=== PATIENT | female | born 1960 | race Caucasian/White ===

== ENCOUNTER → 2016-05-15 | Outpatient (CLI) | payer OTHER | END | disposition home or self-care (01) | LOC: LABWHC1 13:13 | PROVIDERS: ATTEND Otolaryngology | DX: J30.9 Allergic rhinitis, unspecified (principal) | CPT/HCPCS: 36415 ==

== ENCOUNTER 2016-08-09 13:17 | Emergency (ER) | payer OTHER ==
[2016-08-09 13:24] VITALS: RESP 18
[2016-08-09] MEDS ORDERED: MAG HYDROX/AL HYDROX/SIMETH 30 ML, HYOSCYAMINE ELIXIR 10 ML, CIMETIDINE HCL 300 MG, LID... PO STA ×4 (13:45)
--- NOTE | 2016-08-09 13:47 | ED ---
General Adult HPI - General Chief complaint: Abdominal Pain Stated complaint: Chest Pain Time Seen by Provider: 08/09/16 13:20 Source: patient, RN notes reviewed Mode of arrival: ambulatory Limitations: no limitations - History of Present Illness Initial comments: This is a 56-year-old female comes in with a history of heartburn. Patient states she was just recently put on Prevacid which she started this morning. Patient states a few hours after that she started getting a heartburn-like feeling back in the same area she normally has it however it didn't subside and in fact has gotten worse so it made her nervous so she decided to come to the emergency department. Patient denies any chest pain or pressure. Patient denies any difficulty breathing shortest breath patient denies any diaphoresis. Patient denies any nausea. Patient states the pain starts in the epigastric area and lewis up a little from there. Patient states drinking water and/or eating something not been down for a short period time but then it comes back just as strong. Patient denies any recent fever chills or cough. Patient denies headache patient denies any lightheadedness dizziness or near syncopal episode. Patient denies diabetes or hypertension. Patient states she has had some history of high cholesterol but is on no medication at this time. Patient denies smoking - Related Data Home Medications Medication Instructions Recorded Confirmed Albuterol Sulfate [Proventil Hfa] 2 puff INHALATION RT-Q4H PRN 11/11/13 08/09/16 Aspirin 81 mg PO HS 11/11/13 08/09/16 Cetirizine HCl [Zyrtec] 10 mg PO HS 11/11/13 08/09/16 Estradiol Cream [Estrace Cream 1 gm TOPICAL MO 11/11/13 08/09/16 0.01%] Famotidine [Pepcid] 20 mg PO HS 11/11/13 08/09/16 Montelukast [Singulair] 10 mg PO HS 11/11/13 08/09/16 Olopatadine HCl [Patanol] 1 drop BOTH EYES BID 11/11/13 08/09/16 Acetaminophen [Tylenol] 650 mg PO Q4H PRN 10/10/15 08/09/16 Fluticasone/Salmeterol [Advair 1 puff INHALATION RT-BID 10/10/15 08/09/16 250-50 Diskus] Lansoprazole [Prevacid] 15 mg PO DAILY 08/09/16 08/09/16 Allergies Allergy/AdvReac Type Severity Reaction Status Date / Time amoxicillin trihydrate Allergy Unknown Verified 08/09/16 13:47 [From Augmentin] bacitracin Allergy Unknown Verified 08/09/16 13:47 [From Neosporin ([id number])] bacitracin zinc Allergy Unknown Verified 08/09/16 13:47 [From Neosporin ([id number])] banana Allergy Unknown Verified 08/09/16 13:47 cephalexin monohydrate Allergy Unknown Verified 08/09/16 13:47 [From Keflex] levofloxacin [From Levaquin] Allergy Unknown Verified 08/09/16 13:47 mometasone furoate Allergy Unknown Verified 08/09/16 13:47 [From Nasonex] neomycin sulfate Allergy Unknown Verified 08/09/16 13:47 [From Neosporin ([id number])] omalizumab [From Xolair] Allergy Swelling Verified 08/09/16 13:47 pineapple Allergy Unknown Verified 08/09/16 13:47 polymyxin B Allergy Unknown Verified 08/09/16 13:47 [From Neosporin ([id number])] potassium clavulanate Allergy Unknown Verified 08/09/16 13:47 [From Augmentin] sulfamethoxazole Allergy Unknown Verified 08/09/16 13:47 [From Bactrim] trimethoprim [From Bactrim] Allergy Unknown Verified 08/09/16 13:47 yeast, dried Allergy Unknown Verified 08/09/16 13:47 Iodinated Contrast Media - AdvReac Unknown Verified 08/09/16 13:47 Oral and [Iodinated Contrast Media - IV Dye] ketorolac [From Acular] AdvReac Unknown Verified 08/09/16 13:47 ketorolac tromethamine AdvReac Nausea & Verified 08/09/16 13:47 [From Toradol] Vomiting nabumetone [From Relafen] AdvReac Unknown Verified 08/09/16 13:47 omeprazole [From Prilosec] AdvReac Unknown Verified 08/09/16 13:47 Review of Systems ROS Statement: Those systems with pertinent positive or pertinent negative responses have been documented in the HPI. ROS Other: All systems not noted in ROS Statement are negative. Past Medical History Past Medical History: Asthma, GERD/Reflux, Hyperlipidemia History of Any Multi-Drug Resistant Organisms: None Reported Past Surgical History: Section, Hysterectomy Additional Past Surgical History / Comment(s): sinus Past Psychological History: No Psychological Hx Reported Smoking Status: Former smoker Past Alcohol Use History: None Reported Past Drug Use History: None Reported General Exam - General Exam Comments Initial Comments: GENERAL: Patient is well-developed and well-nourished. Patient is nontoxic and well- hydrated and is in mild distress. ENT: Neck is soft and supple. No significant lymphadenopathy is noted. Oropharynx is clear. Moist mucous membranes. Neck has full range of motion without eliciting any pain. EYES: The sclera were anicteric and conjunctiva were pink and moist. Extraocular movements were intact and pupils were equal round and reactive to light. Eyelids were unremarkable. PULMONARY: Unlabored respirations. Good breath sounds bilaterally. No audible rales rhonchi or wheezing was noted. CARDIOVASCULAR: There is a regular rate and rhythm without any murmurs gallops or rubs. ABDOMEN: Soft and nontender with normal bowel sounds. No palpable organomegaly was noted. There is no palpable pulsatile mass. SKIN: Skin is clear with no lesions or rashes and otherwise unremarkable. NEUROLOGIC: Patient is alert and oriented x3. Cranial nerves II through XII are grossly intact. Motor and sensory are also intact. Normal speech, volume and content. Symmetrical smile. MUSCULOSKELETAL: Normal extremities with adequate strength and full range of motion. No lower extremity swelling or edema. No calf tenderness. LYMPHATICS: No significant lymphadenopathy is noted PSYCHIATRIC: Normal psychiatric evaluation. Normal interpersonal interactions appears functionally intact in deals appropriately with others. Patient is mildly anxious Limitations: no limitations Course Vital Signs 08/09/16 13:21 Temperature 97.1 F L Pulse Rate 71 Respiratory 18 Rate Blood Pressure 140/75 O2 Sat by Pulse 100 Oximetry Medical Decision Making - Medical Decision Making EKG shows normal sinus rhythm at 75 bpm NM interval 166 dresses 86 QT interval 416 QTC is 464. Patient's EKG shows no ST segment elevation or depression or T- wave abnormality is noted. Patient had a GI cocktail and immediately had almost complete relief. Disposition Clinical Impression: GERD (gastroesophageal reflux disease) Disposition: HOME SELF-CARE Instructions: Gastroesophageal Reflux Disease (ED) Referrals: Domenica Kemp MD [Primary Care Provider] - 1-2 days Time of Disposition: 14:16
[2016-08-09 14:33] VITALS: BP 121/66; PULSE 70; TEMP 97.8
== END 2016-08-09 14:34 | disposition home or self-care (01) ==
LOC: EC 13:17
DX: K21.9 Gastro-esophageal reflux disease without esophagitis (principal); J45.909 Unspecified asthma, uncomplicated; Z87.891 Personal history of nicotine dependence; Z79.82 Long term (current) use of aspirin; Z79.51 Long term (current) use of inhaled steroids; Z79.3 Long term (current) use of hormonal contraceptives; Z79.899 Other long term (current) drug therapy; Z88.0 Allergy status to penicillin; Z88.1 Allergy status to other antibiotic agents; Z88.6 Allergy status to analgesic agent; Z88.8 Allergy status to other drugs, medicaments and biological substances; Z91.018 Allergy to other foods; Z91.041 Radiographic dye allergy status
CPT/HCPCS: 93005; 99284

== ENCOUNTER 2016-09-06 20:24 | Emergency (ER) | payer OTHER ==
[2016-09-06 20:31] VITALS: TEMP 98
--- NOTE | 2016-09-06 21:41 | ED ---
Skin/Abscess/FB HPI - General Chief complaint: Skin/Abscess/Foreign Body Stated complaint: Allergic Reaction Time Seen by Provider: 09/06/16 20:54 Source: patient Mode of arrival: ambulatory Limitations: no limitations - History of Present Illness Initial comments: Patient is a 56-year-old white female presenting to the emergency department with complaints of generalized rash that started at 2 PM today. Patient states she has had a rash on her posterior neck for approximately 2 weeks and was developing a secondary infection. Patient states that she went to a supervisor shop 4 days ago who prescribed doxycycline. Patient states that today she started breaking out in a rash around 2 PM that's itching. Patient denies chills, fevers, nausea, vomiting, shortness of breath, chest pain, or abdominal pain. Patient denies similar episode in the past. Patient states she took a Benadryl approximately 4 hours ago. MD complaint: rash Time: 14:00 Tetanus Up to Date: unsure Location: generalized Severity: mild Severity scale (1-10): 2 Quality: other (itching) Consistency: intermittent Improves with: medication Worsens with: none Context: new medication (Patient started doxycycline 4 days ago) Associated symptoms: itching Treatments Prior to Arrival: Benadryl - Related Data Home Medications Medication Instructions Recorded Confirmed Albuterol Sulfate [Proventil Hfa] 2 puff INHALATION RT-Q4H PRN 11/11/13 08/09/16 Aspirin 81 mg PO HS 11/11/13 08/09/16 Cetirizine HCl [Zyrtec] 10 mg PO HS 11/11/13 08/09/16 Estradiol Cream [Estrace Cream 1 gm TOPICAL MO 11/11/13 08/09/16 0.01%] Famotidine [Pepcid] 20 mg PO HS 11/11/13 08/09/16 Montelukast [Singulair] 10 mg PO HS 11/11/13 08/09/16 Olopatadine HCl [Patanol] 1 drop BOTH EYES BID 11/11/13 08/09/16 Acetaminophen [Tylenol] 650 mg PO Q4H PRN 10/10/15 08/09/16 Fluticasone/Salmeterol [Advair 1 puff INHALATION RT-BID 10/10/15 08/09/16 250-50 Diskus] Lansoprazole [Prevacid] 15 mg PO DAILY 08/09/16 08/09/16 Allergies Allergy/AdvReac Type Severity Reaction Status Date / Time amoxicillin trihydrate Allergy Unknown Verified 09/06/16 20:33 [From Augmentin] bacitracin Allergy Unknown Verified 09/06/16 20:33 [From Neosporin ([id number])] bacitracin zinc Allergy Unknown Verified 09/06/16 20:33 [From Neosporin ([id number])] banana Allergy Unknown Verified 09/06/16 20:33 cephalexin monohydrate Allergy Unknown Verified 09/06/16 20:33 [From Keflex] levofloxacin [From Levaquin] Allergy Unknown Verified 09/06/16 20:33 mometasone furoate Allergy Unknown Verified 09/06/16 20:33 [From Nasonex] neomycin sulfate Allergy Unknown Verified 09/06/16 20:33 [From Neosporin ([id number])] omalizumab [From Xolair] Allergy Swelling Verified 09/06/16 20:33 pineapple Allergy Unknown Verified 09/06/16 20:33 polymyxin B Allergy Unknown Verified 09/06/16 20:33 [From Neosporin ([id number])] potassium clavulanate Allergy Unknown Verified 09/06/16 20:33 [From Augmentin] sulfamethoxazole Allergy Unknown Verified 09/06/16 20:33 [From Bactrim] trimethoprim [From Bactrim] Allergy Unknown Verified 09/06/16 20:33 yeast, dried Allergy Unknown Verified 09/06/16 20:33 ciprofloxacin AdvReac Dizziness/n Verified 09/06/16 20:34 ausea Iodinated Contrast Media - AdvReac Unknown Verified 09/06/16 20:33 Oral and [Iodinated Contrast Media - IV Dye] ketorolac [From Acular] AdvReac Unknown Verified 09/06/16 20:33 ketorolac tromethamine AdvReac Nausea & Verified 09/06/16 20:33 [From Toradol] Vomiting nabumetone [From Relafen] AdvReac Unknown Verified 09/06/16 20:33 omeprazole [From Prilosec] AdvReac Unknown Verified 09/06/16 20:33 Review of Systems ROS Statement: Those systems with pertinent positive or pertinent negative responses have been documented in the HPI. ROS Other: All systems not noted in ROS Statement are negative. Past Medical History Past Medical History: Asthma, GERD/Reflux, Hyperlipidemia History of Any Multi-Drug Resistant Organisms: None Reported Past Surgical History: Section, Hysterectomy Additional Past Surgical History / Comment(s): sinus Past Psychological History: No Psychological Hx Reported Smoking Status: Former smoker Past Alcohol Use History: None Reported Past Drug Use History: None Reported General Exam - General Exam Comments Initial Comments: GENERAL: Pt awake and alert, well-appearing, well-nourished, and in no acute distress. HEAD: Atraumatic, normocephalic. EYES: Pupils equal, round, and reactive to light, sclera anicteric, conjunctiva are normal. ENT: Oropharynx clear without exudates. Moist mucous membranes. Tongue smooth, pink, no lesions, protrudes in midline. No oral lesions noted. NECK:Normal range of motion, supple without lymphadenopathy or JVD. LUNGS: Breath sounds clear to auscultation bilaterally. No wheezes, rales, or rhonchi. HEART: Heart S1, S2, no S3 or S4. Regular rate and rhythm. No murmurs, rubs or gallops. ABDOMEN: Soft, nontender, nondistended, normoactive bowel sounds. No guarding, no rebound. No masses or organomegaly appreciated. EXTREMITIES: 2+ peripheral pulses. No edema. No calf tenderness. NEUROLOGICAL: Pt oriented x 3. Cranial nerves II through XII grossly intact. Strength and sensation grossly intact. PSYCH: Normal mood, normal affect. SKIN: Warm, dry, intact. Generalized macular papular rash to entire body except face. Limitations: no limitations Course Vital Signs 09/06/16 09/06/16 20:28 21:53 Temperature 98.0 F Pulse Rate 95 85 Respiratory 18 16 Rate Blood Pressure 123/75 131/80 O2 Sat by Pulse 100 100 Oximetry Medical Decision Making - Medical Decision Making Generalized maculopapular rash suspect secondary to drug reaction. Patient instructed to discontinue doxycycline and continue Benadryl every 6 hours as needed. Patient instructed to follow-up with supervisor shop. Patient instructed to return to the emergency department if symptoms do not improve or get worse. Patient agrees with treatment plan. Discharge instructions and return parameters reviewed. Disposition Clinical Impression: Allergic reaction to drug Disposition: HOME SELF-CARE Condition: Good Instructions: Antibiotic Medication Allergy (ED) Additional Instructions: Stop doxycycline. Continue Benadryl 50 mg every 6 hours as needed. Follow-up with dermatology. If symptoms do not improve or get worse please return to the emergency department. Referrals: Domenica Kemp MD [Primary Care Provider] - 1-2 days Time of Disposition: 21:41
[2016-09-06 21:55] VITALS: BP 131/80; PULSE 85; RESP 16
== END 2016-09-06 21:55 | disposition home or self-care (01) ==
LOC: EC 20:24
DX: R21 Rash and other nonspecific skin eruption (principal); T36.4X5A Adverse effect of tetracyclines, initial encounter; J45.909 Unspecified asthma, uncomplicated; K21.9 Gastro-esophageal reflux disease without esophagitis; E78.5 Hyperlipidemia, unspecified; Z88.0 Allergy status to penicillin; Z88.1 Allergy status to other antibiotic agents; Z88.2 Allergy status to sulfonamides; Z88.5 Allergy status to narcotic agent; Z88.8 Allergy status to other drugs, medicaments and biological substances; Z91.018 Allergy to other foods; Z91.041 Radiographic dye allergy status; Z79.51 Long term (current) use of inhaled steroids; Z79.82 Long term (current) use of aspirin; Z79.899 Other long term (current) drug therapy; Z87.891 Personal history of nicotine dependence
CPT/HCPCS: 99283

== ENCOUNTER 2016-09-07 16:02 | Emergency (ER) | payer OTHER ==
[2016-09-07 16:25] VITALS: TEMP 97.2
[2016-09-07 16:51] VITALS: RESP 16
--- NOTE | 2016-09-07 17:32 | ED ---
General Adult HPI <Deangelo Palacios - Last Filed: 09/07/16 17:33> - General Source: patient, RN notes reviewed Mode of arrival: ambulatory Limitations: no limitations <Jaziel Weems - Last Filed: 09/07/16 17:47> - General Chief complaint: Allergic Reaction Stated complaint: Allergic Reaction Time Seen by Provider: 09/07/16 16:28 - History of Present Illness Initial comments: Patient's a 56-year-old female who presents emergency room today with chief complaint of a rash. Patient does admit that she was on doxycycline due to a infection to the back of her neck. She states she was on this for 4 days. States that yesterday she had increased itching and a rash that broke out across her body. She states that she tried some Benadryl. She was seen here in the emergency room and advised to continue with Benadryl. Patient does admit that she's been using this but feels that symptoms are increasing. Patient states she cannot take steroids as it causes GI upset. Patient also admits to a possible yeast infection. Patient denies any other complaints or symptoms at this time. Patient denies any recent fever, chills, shortness of breath, chest pain, back pain, abdominal pain, nausea or vomiting, numbness or tingling, dysuria or hematuria, constipation or diarrhea, headaches or visual changes, or any other complaints. (Jaziel Weems) - Related Data Home Medications Medication Instructions Recorded Confirmed Albuterol Sulfate [Proventil Hfa] 2 puff INHALATION RT-Q4H PRN 11/11/13 08/09/16 Aspirin 81 mg PO HS 11/11/13 08/09/16 Cetirizine HCl [Zyrtec] 10 mg PO HS 11/11/13 08/09/16 Estradiol Cream [Estrace Cream 1 gm TOPICAL MO 11/11/13 08/09/16 0.01%] Famotidine [Pepcid] 20 mg PO HS 11/11/13 08/09/16 Montelukast [Singulair] 10 mg PO HS 11/11/13 08/09/16 Olopatadine HCl [Patanol] 1 drop BOTH EYES BID 11/11/13 08/09/16 Acetaminophen [Tylenol] 650 mg PO Q4H PRN 10/10/15 08/09/16 Fluticasone/Salmeterol [Advair 1 puff INHALATION RT-BID 10/10/15 08/09/16 250-50 Diskus] Lansoprazole [Prevacid] 15 mg PO DAILY 08/09/16 08/09/16 Previous Rx's Medication Instructions Recorded Fluconazole [Diflucan] 150 mg PO ONCE #1 tab 09/07/16 hydrOXYzine PAMOATE [Vistaril] 100 mg PO Q6H #20 capsule 09/07/16 Allergies Allergy/AdvReac Type Severity Reaction Status Date / Time amoxicillin trihydrate Allergy Unknown Verified 09/07/16 16:20 [From Augmentin] bacitracin Allergy Unknown Verified 09/07/16 16:20 [From Neosporin ([id number])] bacitracin zinc Allergy Unknown Verified 09/07/16 16:20 [From Neosporin ([id number])] banana Allergy Unknown Verified 09/07/16 16:20 cephalexin monohydrate Allergy Unknown Verified 09/07/16 16:20 [From Keflex] levofloxacin [From Levaquin] Allergy Unknown Verified 09/07/16 16:20 mometasone furoate Allergy Unknown Verified 09/07/16 16:20 [From Nasonex] neomycin sulfate Allergy Unknown Verified 09/07/16 16:20 [From Neosporin ([id number])] omalizumab [From Xolair] Allergy Swelling Verified 09/07/16 16:20 pineapple Allergy Unknown Verified 09/07/16 16:20 polymyxin B Allergy Unknown Verified 09/07/16 16:20 [From Neosporin ([id number])] potassium clavulanate Allergy Unknown Verified 09/07/16 16:20 [From Augmentin] sulfamethoxazole Allergy Unknown Verified 09/07/16 16:20 [From Bactrim] trimethoprim [From Bactrim] Allergy Unknown Verified 09/07/16 16:20 yeast, dried Allergy Unknown Verified 09/07/16 16:20 ciprofloxacin AdvReac Dizziness/n Verified 09/07/16 16:20 ausea Iodinated Contrast Media - AdvReac Unknown Verified 09/07/16 16:20 Oral and [Iodinated Contrast Media - IV Dye] ketorolac [From Acular] AdvReac Unknown Verified 09/07/16 16:20 ketorolac tromethamine AdvReac Nausea & Verified 09/07/16 16:20 [From Toradol] Vomiting nabumetone [From Relafen] AdvReac Unknown Verified 09/07/16 16:20 omeprazole [From Prilosec] AdvReac Unknown Verified 09/07/16 16:20 Review of Systems ROS Other: All systems not noted in ROS Statement are negative. <Deangelo Palacios - Last Filed: 09/07/16 17:33> ROS Other: All systems not noted in ROS Statement are negative. <Jaziel Weems - Last Filed: 09/07/16 17:47> ROS Statement: Those systems with pertinent positive or pertinent negative responses have been documented in the HPI. Past Medical History Past Medical History: Asthma, GERD/Reflux, Hyperlipidemia History of Any Multi-Drug Resistant Organisms: None Reported Past Surgical History: Section, Hysterectomy Additional Past Surgical History / Comment(s): sinus Past Psychological History: No Psychological Hx Reported Smoking Status: Former smoker Past Alcohol Use History: None Reported Past Drug Use History: None Reported <Jaziel Weems - Last Filed: 09/07/16 17:47> General Exam External exam: Present: erythema. Absent: lesions Speculum exam: Present: erythema, vaginal discharge (white discharge noted ), cervical discharge. Absent: vaginal bleeding, foreign body, tissue, laceration By manual exam: Present: normal by manual exam. Absent: cervical motion tenderness, adnexal tenderness, adnexal mass, uterine enlargement, uterine tenderness Expanded Female exam: Present: vulvar erythema, vulvar tenderness. Absent: herpetic lesions <Deangelo Palacios - Last Filed: 09/07/16 17:33> Limitations: no limitations <Jaziel Weems - Last Filed: 09/07/16 17:47> - General Exam Comments Initial Comments: General: The patient is awake and alert, in no distress, and does not appear acutely ill. Eye: Pupils are equal, round and reactive to light, extra-ocular movements are intact. No nystagmus. There is normal conjunctiva bilaterally. No signs of icterus. Ears, nose, mouth and throat: There are moist mucous membranes and no oral lesions. Neck: The neck is supple, there is no tenderness or JVD. Cardiovascular: There is a regular rate and rhythm. No murmur, rub or gallop is appreciated. Respiratory: Lungs are clear to auscultation, respirations are non-labored, breath sounds are equal. No wheezes, stridor, rales, or rhonchi. Musculoskeletal: Normal ROM, no tenderness. Strength 5/5. Sensation intact. Pulses equal bilaterally 2+. Neurological: A&O x 3. CN II-XII intact, There are no obvious motor or sensory deficits. Coordination appears grossly intact. Speech is normal. Skin: She does have Type rash scattered throughout the upper and lower extremities along with the anterior and posterior trunk. Findings consistent with hives. Psychiatric: Cooperative, appropriate mood & affect, normal judgment. (Jaziel Weems) Medical Decision Making <Deangelo Palacios Last Filed: 09/07/16 17:33> <Jaziel Weems - Last Filed: 09/07/16 17:47> - Medical Decision Making Patient advised that we can try Vistaril instead of Benadryl and advised to continue and begin taking her Pepcid that she's taken in the past because it will help with some of his symptoms. Patient wanted a pelvic exam performed but wanted a female provider and this was performed by Deangelo Palacios [employer] who states the findings are consistent with a yeast infection. Patient was on Diflucan given one pill when she started doxycycline. Patient will be given another dose of Diflucan. Advised that she should follow-up with the clam dredger. He will be given a prescription for Vistaril. Advised to use Pepcid. Advised return for any other concerns. (Jaziel Weems) Disposition <Deangelo Palacios - Last Filed: 09/07/16 17:33> Time of Disposition: 17:45 <Jaziel Weems - Last Filed: 09/07/16 17:47> Clinical Impression: Allergic reaction, Yeast infection Disposition: HOME SELF-CARE Condition: Good Instructions: Urticaria (ED) Additional Instructions: Please use medication as discussed. Please follow-up with family doctor / clam dredger in the next 2 days of symptoms have not improved. Please return to emergency room if the symptoms increase or worsen or for any other concerns. Prescriptions: Fluconazole [Diflucan] 150 mg PO ONCE #1 tab hydrOXYzine PAMOATE [Vistaril] 100 mg PO Q6H #20 capsule Referrals: Domenica Kemp MD [Primary Care Provider] - 1-2 days
[2016-09-07 17:37] VITALS: BP 120/77; PULSE 67
== END 2016-09-07 17:55 | disposition home or self-care (01) ==
LOC: EC 16:02
DX: B37.9 Candidiasis, unspecified (principal); T36.4X5A Adverse effect of tetracyclines, initial encounter; R21 Rash and other nonspecific skin eruption; J45.909 Unspecified asthma, uncomplicated; K21.9 Gastro-esophageal reflux disease without esophagitis; E78.5 Hyperlipidemia, unspecified; Z87.891 Personal history of nicotine dependence; Z79.51 Long term (current) use of inhaled steroids; Z79.82 Long term (current) use of aspirin; Z79.899 Other long term (current) drug therapy; Z88.0 Allergy status to penicillin; Z88.1 Allergy status to other antibiotic agents; Z91.018 Allergy to other foods; Z88.8 Allergy status to other drugs, medicaments and biological substances; Z88.2 Allergy status to sulfonamides; Z91.041 Radiographic dye allergy status; Z88.6 Allergy status to analgesic agent
CPT/HCPCS: 99283

== ENCOUNTER → 2017-09-21 | Outpatient (CLI) | payer OTHER ==
--- NOTE | 2017-09-21 08:27 | MR ---
EXAMINATION TYPE: MR lumbar spine wo con DATE OF EXAM: 09/21/2017 COMPARISON: 09/15/2013 HISTORY: Sciatica pain- left side TECHNIQUE: Multiplanar, multisequence images of the lumbar spine were acquired. FINDINGS: The lumbar spine vertebral bodies maintain normal vertebral body heights and alignment. Bon e marrow signal is within normal limits. Multilevel disc desiccation is seen. Conus medullaris termin ates at the L1-L2 interspace. L1-L2: Normal disc appearance without desiccation. No herniation, protrusion or disc bulging. No ca nal stenosis is present. Foramina are patent bilaterally. L2-L3: Normal disc appearance without desiccation. No herniation, protrusion or disc bulging. No ca nal stenosis is present. Foramina are patent bilaterally. L3-L4: There is a broad-based disc bulge and minimal facet arthropathy without spinal canal stenosis or neural foraminal narrowing. L4-L5: There is a central disc protrusion and annular tear minimally effacing the ventral subarachnoi d space and place impression upon the ventral thecal sac. This is similar in comparison to the exam o f 09/15/2013 with the spinal canal measuring approximately 7 mm. There is mild spinal canal stenosis an d minimal bilateral neural foraminal narrowing. L5-S1: There is a small broad-based disc bulge without spinal canal stenosis or neural foraminal narr owing. IMPRESSION: Similar-appearing small central disc herniation at L4-L5 creating mild spinal canal stenosis and mini mal bilateral neural foraminal narrowing. No new focal disc herniation. Minimal multilevel degenerati ve disc disease without additional areas of neural foraminal narrowing.
== END ==
LOC: RADMRIMAIN 07:28
PROVIDERS: ATTEND Psychiatry & Neurology Neurology
DX: M51.26 Other intervertebral disc displacement, lumbar region (principal)
CPT/HCPCS: 72148

== ENCOUNTER → 2017-09-29 | Outpatient (CLI) | payer OTHER | END | disposition home or self-care (01) | LOC: LABWHC1 15:32 | PROVIDERS: ATTEND Otolaryngology | DX: J30.89 Other allergic rhinitis (principal) | CPT/HCPCS: 36415 ==

== ENCOUNTER → 2018-02-16 | Outpatient (CLI) | payer OTHER ==
--- NOTE | 2018-02-16 21:35 | CT ---
EXAMINATION TYPE: CT sinus wo con DATE OF EXAM: 02/16/2018 COMPARISON: Sinus CT September 30, 2013 HISTORY: Chronic sinusitis per order. Sinus issues per patient. CT DLP: 577 mGycm. Automated Exposure Control for Dose Reduction was Utilized. TECHNIQUE: CT scan of the sinuses is performed without contrast, axial images are obtained, coronal r eformatted images are also reviewed. FINDINGS: The paranasal sinuses including the frontal, ethmoid, sphenoid, and maxillary sinuses bila terally are well-aerated without suspicious opacification or air-fluid levels. Mild mucosal thickenin g superior right ethmoid sinuses is stable. The surgically treated ostiomeatal complex is patent gianfranco aterally on the coronal images. Mild left-sided antral mucosal thickening is stable Visualized portion of mastoid air cells show no abnormal opacification. The globes are intact bilate rally. IMPRESSION: Stable mild right-sided ethmoid chronic sinusitis. No acute sinusitis. No significant ch jordan from prior CT.
== END | disposition home or self-care (01) ==
LOC: RADCTMAIN 16:12
PROVIDERS: ATTEND Nurse Practitioner Family
DX: J32.2 Chronic ethmoidal sinusitis (principal)
CPT/HCPCS: 70486

== ENCOUNTER 2018-03-04 10:58 | Emergency (ER) | payer OTHER ==
[2018-03-04 11:17] VITALS: BP 117/77; PULSE 94; RESP 18; TEMP 98
--- NOTE | 2018-03-04 12:46 | XR ---
EXAMINATION TYPE: XR chest 2V DATE OF EXAM: 03/04/2018 COMPARISON: Chest x-ray from 3 days ago. HISTORY: Recent upper respiratory infection with chest pain protocol. TECHNIQUE: Frontal and lateral views of the chest are obtained. FINDINGS: There is new right basilar linear atelectasis. There is no new suspicious focal air space opacity, pleural effusion, or pneumothorax seen. The cardiac silhouette size is within normal limits . The osseous structures are intact. IMPRESSION: New lateral right basilar linear atelectasis. No suspicious new acute focal infiltrate.
--- NOTE | 2018-03-04 14:08 | ED ---
General Adult HPI - General Chief complaint: Skin/Abscess/Foreign Body Stated complaint: BUMPS ALL OVER Time Seen by Provider: 03/04/18 11:26 Source: patient, RN notes reviewed Mode of arrival: ambulatory Limitations: no limitations - History of Present Illness Initial comments: 58-year-old female presents to the emergency department for a chief complaint of rash 2 days. Patient states she has severe yeast ALLERGY and believes this is related. Patient states she has been eating a lot of superfast [place] believes it has yeast in it. Patient states she has had this rash once before and went away without any difficulties. Patient also presents for upper respiratory infection. Patient has been coughing for about 5 days. Cough is nonproductive. No fevers or chills. No smoking history. Patient does have a history of asthma. She denies any significant shortness of breath. Patient has no other complaints at this time including shortness of breath, chest pain, abdominal pain, nausea or vomiting, headache, or visual changes. - Related Data Home Medications Medication Instructions Recorded Confirmed Albuterol Sulfate [Proventil Hfa] 2 puff INHALATION RT-Q4H PRN 11/11/13 03/04/18 Aspirin 81 mg PO HS 11/11/13 03/04/18 Cetirizine HCl [Zyrtec] 10 mg PO HS 11/11/13 03/04/18 Estradiol Cream [Estrace Cream 1 gm TOPICAL MO 11/11/13 03/04/18 0.01%] Famotidine [Pepcid] 20 mg PO HS PRN 11/11/13 03/04/18 Montelukast [Singulair] 10 mg PO HS 11/11/13 03/04/18 Olopatadine HCl [Patanol] 1 drop BOTH EYES BID PRN 11/11/13 03/04/18 Fluticasone/Salmeterol [Advair 1 puff INHALATION RT-BID 10/10/15 03/04/18 250-50 Diskus] Dextran/Hypromellose/Glycerin 1 drop BOTH EYES DAILY PRN 02/08/17 03/04/18 [Genteal Tears 0.1%-0.2%-0.3%] Ibuprofen [Motrin] 200 - 400 mg PO Q6HR PRN 02/08/17 03/04/18 EPINEPHrine (Auto Inject) [Epipen] 0.3 mg IM ONCE PRN 03/01/18 03/04/18 Cholecalciferol [Vitamin D3] 1,000 unit PO DIRECTED 03/04/18 03/04/18 Fluconazole [Diflucan] 100 mg PO BID 03/04/18 03/04/18 Levalbuterol Nebulized [Xopenex 1.25 mg INHALATION RT-TID PRN 03/04/18 03/04/18 Nebulized] diphenhydrAMINE [Benadryl] 25 - 50 mg PO HS PRN 03/04/18 03/04/18 Previous Rx's Medication Instructions Recorded predniSONE 20 mg PO DAILY 5 Days tab 03/01/18 Allergies Allergy/AdvReac Type Severity Reaction Status Date / Time amoxicillin trihydrate Allergy Unknown Verified 03/04/18 13:37 [From Augmentin] bacitracin Allergy Unknown Verified 03/04/18 13:37 [From Neosporin ([id number])] bacitracin zinc Allergy Unknown Verified 03/04/18 13:37 [From Neosporin ([id number])] banana Allergy Unknown Verified 03/04/18 13:37 cephalexin monohydrate Allergy Unknown Verified 03/04/18 13:37 [From Keflex] cortisone Allergy Rash/Hives Verified 03/04/18 13:37 doxycycline Allergy Rash/Hives Verified 03/04/18 13:37 doxylamine Allergy Rash/Hives Verified 03/04/18 13:37 levofloxacin [From Levaquin] Allergy Unknown Verified 03/04/18 13:37 mometasone furoate Allergy Unknown Verified 03/04/18 13:37 [From Nasonex] neomycin sulfate Allergy Unknown Verified 03/04/18 13:37 [From Neosporin ([id number])] omalizumab [From Xolair] Allergy Swelling Verified 03/04/18 13:37 pineapple Allergy Unknown Verified 03/04/18 13:37 polymyxin B Allergy Unknown Verified 03/04/18 13:37 [From Neosporin ([id number])] potassium clavulanate Allergy Unknown Verified 03/04/18 13:37 [From Augmentin] sulfamethoxazole Allergy Unknown Verified 03/04/18 13:37 [From Bactrim] trimethoprim [From Bactrim] Allergy Unknown Verified 03/04/18 13:37 yeast, dried Allergy Unknown Verified 03/04/18 13:37 ciprofloxacin AdvReac Dizziness/n Verified 03/04/18 13:37 ausea Iodinated Contrast- Oral and AdvReac Unknown Verified 03/04/18 13:37 IV Dye [Iodinated Contrast Media - IV Dye] ketorolac [From Acular] AdvReac Unknown Verified 03/04/18 13:37 ketorolac tromethamine AdvReac Nausea & Verified 03/04/18 13:37 [From Toradol] Vomiting nabumetone [From Relafen] AdvReac Unknown Verified 03/04/18 13:37 omeprazole [From Prilosec] AdvReac Unknown Verified 03/04/18 13:37 Review of Systems ROS Statement: Those systems with pertinent positive or pertinent negative responses have been documented in the HPI. ROS Other: All systems not noted in ROS Statement are negative. Past Medical History Past Medical History: Asthma, GERD/Reflux, Hyperlipidemia Additional Past Medical History / Comment(s): Allergic to [employer]eva [employer] products History of Any Multi-Drug Resistant Organisms: None Reported Past Surgical History: Section, Hysterectomy Additional Past Surgical History / Comment(s): sinus Past Psychological History: No Psychological Hx Reported Smoking Status: Former smoker Past Alcohol Use History: None Reported Past Drug Use History: None Reported General Exam Limitations: no limitations General appearance: alert, in no apparent distress Head exam: Present: atraumatic, normocephalic, normal inspection Eye exam: Present: normal appearance, PERRL, EOMI. Absent: scleral icterus, conjunctival injection, periorbital swelling ENT exam: Present: normal exam, normal oropharynx (Uvula midline, non- erythematous, no tonsillar exudates noted bilaterally), mucous membranes moist, TM's normal bilaterally, normal external ear exam Neck exam: Present: normal inspection, full ROM. Absent: tenderness, meningismus, lymphadenopathy Respiratory exam: Present: normal lung sounds bilaterally (No wheezing or rhonchi noted, lungs sound clear to auscultation bilaterally). Absent: respiratory distress, wheezes, rales, rhonchi, stridor Cardiovascular Exam: Present: regular rate, normal rhythm, normal heart sounds. Absent: systolic murmur, diastolic murmur, rubs, gallop, clicks Neurological exam: Present: alert, oriented X3, CN II-XII intact Psychiatric exam: Present: normal affect, normal mood Skin exam: Present: rash (About five 1 cm x 1 cm macular erythematous lesions noted sporadically, one to right upper arm, one too right ankle, one under right breast. She also has smaller papular lesions noted of the lower back.) Course Vital Signs 03/04/18 11:15 Temperature 98 F Pulse Rate 94 Respiratory 18 Rate Blood Pressure 117/77 O2 Sat by Pulse 98 Oximetry Medical Decision Making - Medical Decision Making 58-year-old female presents for a chief complaint of rash 2 days. Patient has a severe yeast ALLERGY and believes this is related. Rash consists of about 3- 5 sporadically placed 1 cm x 1 cm macular erythematous lesions. There are also small edematous papular lesions noted on the lower back. Patient states they are pruritic when she touches them but otherwise are asymptomatic. She also has upper respiratory infection according to her. Patient has a history of asthma. Patient had a chest x-ray done here 4 days ago which was negative. Lungs are clear to auscultate bilaterally. Chest x-ray was repeated which did not show any new consolidation although there is right lower lobe atelectasis. Patient was given steroids at her previous visit which she filled at home but has not yet taken. She states she will take these when she gets home. She refuses any steroids here as she states it has to be a specific brand where she will have an ALLERGIC reaction. The brand she has at home is a brand she tolerates. Dr. Roman also examined patient's rash. 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 She will follow-up with primary care for cough. Patient will return here if she has any worsening symptoms. Disposition Clinical Impression: Rash, Upper respiratory infection Disposition: HOME SELF-CARE Condition: Good Instructions: Upper Respiratory Infection (ED), Acute Rash (ED) Additional Instructions: Take steroid they were previously given. Please follow up with primary care in 1-2 days. Follow up with dermatology tomorrow. Please return to the emergency department if you have any worsening symptoms. Is patient prescribed a controlled substance at d/c from ED?: No Referrals: Domenica Kemp MD [Primary Care Provider] - 1-2 days Marcus Goodwin MD [STAFF PHYSICIAN] - 1-2 days Time of Disposition: 14:06
== END 2018-03-04 14:26 | disposition home or self-care (01) ==
LOC: EC 10:58
DX: J06.9 Acute upper respiratory infection, unspecified (principal); R21 Rash and other nonspecific skin eruption; J98.11 Atelectasis; J45.909 Unspecified asthma, uncomplicated; K21.9 Gastro-esophageal reflux disease without esophagitis; E78.5 Hyperlipidemia, unspecified; Z87.891 Personal history of nicotine dependence; Z90.710 Acquired absence of both cervix and uterus; Z79.51 Long term (current) use of inhaled steroids; Z79.82 Long term (current) use of aspirin; Z79.899 Other long term (current) drug therapy; Z88.0 Allergy status to penicillin; Z88.1 Allergy status to other antibiotic agents; Z88.2 Allergy status to sulfonamides; Z88.6 Allergy status to analgesic agent; Z88.8 Allergy status to other drugs, medicaments and biological substances; Z91.018 Allergy to other foods; Z91.041 Radiographic dye allergy status; Z91.048 Other nonmedicinal substance allergy status
CPT/HCPCS: 71046; 99283

== ENCOUNTER → 2018-03-23 | Outpatient (CLI) | payer OTHER ==
--- NOTE | 2018-03-26 07:34 | MM ---
Reason for exam: screening (asymptomatic). Last mammogram was performed 1 year and 3 months ago. Physical Findings: A clinical breast exam by your physician is recommended on an annual basis and results should be correlated with mammographic findings. MG Screening Mammo w CAD Bilateral CC and MLO view(s) were taken. Prior study comparison: January 01, 2017, bilateral MG screening mammo w CAD. January 18, 2015, bilateral MG screening mammo w CAD. There are scattered fibroglandular densities. No significant changes when compared with prior studies. ASSESSMENT: Benign, BI-RAD 2 RECOMMENDATION: Routine screening mammogram of both breasts in 1 year.
== END | disposition home or self-care (01) ==
LOC: RADMAMWWP 16:33
PROVIDERS: ATTEND Internal Medicine
DX: Z12.31 Encounter for screening mammogram for malignant neoplasm of breast (principal)
CPT/HCPCS: 77067

== ENCOUNTER → 2018-04-24 | Outpatient (CLI) | payer OTHER ==
--- NOTE | 2018-04-24 18:09 | MR ---
Thoracic MRI HISTORY: Mid back pain Multiplanar multisequence imaging obtained through the thoracic spine. No comparisons Thoracic vertebral bodies show preserved height, alignment, and bone marrow signal. Disc spaces are m aintained. There is no significant spinal stenosis, foraminal encroachment, or sizable disc herniatio n. Thoracic cord signal is normal. There are some facet arthropathy changes at the lower thoracic spi ne. Possible small cortical cyst upper pole right kidney measures only 6 mm. Small multilevel disc bu lges show only slight anterior mass effect on the thecal sac to include T9-10 to the right of midline , at C4-5 centrally at C3-4 centrally and T2-3, T1-T2. Some loss of disc height signal present at T9- 10. IMPRESSION: Mild degenerative disc disease.
== END | disposition home or self-care (01) ==
LOC: RADMRIMAIN 14:09
PROVIDERS: ATTEND Psychiatry & Neurology Neurology
DX: M51.34 Other intervertebral disc degeneration, thoracic region (principal)
CPT/HCPCS: 72146

== ENCOUNTER → 2018-05-20 | Outpatient (CLI) | payer OTHER ==
--- NOTE | 2018-05-21 07:12 | US ---
EXAMINATION TYPE: US kidneys/renal and bladder DATE OF EXAM: 05/20/2018 COMPARISON: MRI thoracic spine dated 04/24/2018 CLINICAL HISTORY: N28.0 Renal Cyst Rt Side. Renal cyst per MRI EXAM MEASUREMENTS: Right Kidney: 9.2 x 3.8 x 3.7 cm Left Kidney: 9.0 x 3.8 x 3.7 cm Right Kidney: Cystic area seen on MRI not seen on todays ultrasound exam. No hydronephrosis or nephr olithiasis. Left Kidney: No hydronephrosis or masses seen Bladder: wnl Bilateral Jets seen: Yes There is no evidence for hydronephrosis at this point in time. No nephrolithiasis is seen. No ksenia s are identified. The urinary bladder is anechoic. Bilateral ureteral jets are seen. IMPRESSION: The questionable cyst seen within the right upper pole of the kidney is not demonstrated on ultrasoun d and may have been artifactual. No suspicious solid or cystic renal mass is seen of either kidney.
== END | disposition home or self-care (01) ==
LOC: RADUSWWP 15:44
PROVIDERS: ATTEND Internal Medicine
DX: N28.1 Cyst of kidney, acquired (principal)
CPT/HCPCS: 76770

== ENCOUNTER → 2018-06-08 | Outpatient (CLI) | payer OTHER ==
--- NOTE | 2018-06-08 11:31 | XR ---
EXAMINATION TYPE: XR soft tissue neck DATE OF EXAM: 06/08/2018 COMPARISON: NONE HISTORY: 58-year-old female with neck pain TECHNIQUE: 2 views FINDINGS: Normal shouldering without abnormal narrowing of the subglottic airway. Epiglottis and prevertebral s oft tissues appear satisfactory. No retained radiopaque foreign body. No effacement of the nasopharyn geal or oropharyngeal airway. IMPRESSION: Unremarkable radiographic soft tissues of the neck
== END | disposition home or self-care (01) ==
LOC: RADXRYALE 09:38
PROVIDERS: ATTEND Internal Medicine
DX: M54.2 Cervicalgia (principal)
CPT/HCPCS: 70360

== ENCOUNTER → 2018-12-31 | Outpatient (CLI) | payer OTHER ==
--- NOTE | 2018-12-31 13:09 | FL ---
EXAMINATION TYPE: FL barium swallow DATE OF EXAM: 12/31/2018 COMPARISON: None HISTORY: Gastroesophageal reflux TECHNIQUE: A double air contrast UGI study is performed. FINDINGS: Fluoroscopy time: 54 seconds Images: 41 The esophagus dilates to normal caliber has normal contour to the gastroesophageal junction. Gastroes ophageal junction opens to normal caliber. There are a few tertiary contractions present during the e xamination compatible with presbyesophagus. The graft note is made of gastroesophageal reflux during this examination. IMPRESSIONS: 1. Gastroesophageal reflux to the level of the aortic arch during the exam. 2. Presbyesophagus.
== END | disposition home or self-care (01) ==
LOC: RADUSWWP 10:16
PROVIDERS: ATTEND Surgery Plastic and Reconstructive Surgery
DX: K21.9 Gastro-esophageal reflux disease without esophagitis (principal); K22.8 Other specified diseases of esophagus; Z88.1 Allergy status to other antibiotic agents; Z88.3 Allergy status to other anti-infective agents; Z88.6 Allergy status to analgesic agent
CPT/HCPCS: 74220

== ENCOUNTER 2019-01-07 10:39 | Day surgery (SDC) | payer OTHER ==
[2019-01-05 13:29] VITALS: BMI 25.0
[2019-01-07 09:29] VITALS: RESP 16; TEMP 97
--- NOTE | 2019-01-07 09:31 | P.GSHP ---
History of Present Illness H&P Date: 01/07/19 CHIEF COMPLAINT: GERD HISTORY OF PRESENT ILLNESS: The patient is a 58-year-old male who presents reports gastroesophageal reflux disease. Upper endoscopy was offered for further evaluation and management. PAST MEDICAL HISTORY: Please see list. PAST SURGICAL HISTORY: Please see list. MEDICATIONS: Please see list. ALLERGIES: Please see list. SOCIAL HISTORY: No illicit drug use FAMILY HISTORY: No reports of Crohn disease or ulcerative colitis. REVIEW OF ORGAN SYSTEMS: CONSTITUTIONAL: No reports of fevers or chills. GI: Denies any blood in stools or constipation. PHYSICAL EXAM: VITAL SIGNS: Stable GENERAL: Well-developed and pleasant in no acute distress. HEENT: No scleral icterus. Extraocular movements grossly intact. Moist buccal mucosa. NECK: Supple without lymphadenopathy. CHEST: Unlabored respirations. Equal bilateral excursions. CARDIOVASCULAR: Regular rate and rhythm. Distal 2+ pulses. ABDOMEN: Soft, nondistended. MUSCULOSKELETAL: No clubbing, cyanosis, or edema. ASSESSMENT: 1. Gastroesophageal reflux disease PLAN: 1. Recommend proceeding with an upper endoscopy Past Medical History Past Medical History: Asthma, GERD/Reflux, Hyperlipidemia Additional Past Medical History / Comment(s): Allergic to Teva Brand products. 3 leaky heart valves History of Any Multi-Drug Resistant Organisms: None Reported Past Surgical History: Section, Hysterectomy Additional Past Surgical History / Comment(s): sinus Past Anesthesia/Blood Transfusion Reactions: No Reported Reaction Smoking Status: Former smoker - Past Family History Mother Family Medical History: No Reported History Medications and Allergies Home Medications Medication Instructions Recorded Confirmed Type Albuterol Sulfate [Proventil Hfa] 2 puff INHALATION RT-Q4H PRN 11/11/13 01/05/19 History Aspirin 81 mg PO HS 11/11/13 01/05/19 History Estradiol Cream [Estrace Cream 1 gm TOPICAL Q7D 11/11/13 01/05/19 History 0.01%] Montelukast [Singulair] 10 mg PO HS 11/11/13 01/05/19 History Olopatadine HCl [Patanol] 1 drop BOTH EYES BID PRN 11/11/13 01/05/19 History Fluticasone/Salmeterol [Advair 1 puff INHALATION RT-BID 10/10/15 01/05/19 History 250-50 Diskus] Ibuprofen [Motrin] 200 - 400 mg PO Q6HR PRN 02/08/17 01/05/19 History EPINEPHrine (Auto Inject) [Epipen] 0.3 mg IM ONCE PRN 03/01/18 01/05/19 History Cholecalciferol [Vitamin D3] 5,000 unit PO Q7D 03/04/18 01/05/19 History Fluconazole [Diflucan] 100 mg PO BID PRN 03/04/18 01/05/19 History Levalbuterol Nebulized [Xopenex 1.25 mg INHALATION RT-TID PRN 03/04/18 01/05/19 History Nebulized] diphenhydrAMINE [Benadryl] 25 - 50 mg PO HS PRN 03/04/18 01/05/19 History Acetaminophen Tab [Tylenol Tab] 500 mg PO DAILY PRN 01/05/19 01/05/19 History Butalb/Asprin/Caff 50-325-40Mg 1 - 2 cap PO DAILY PRN 01/05/19 01/05/19 History [Fiorinal 50-325-40 MG] Cetirizine HCl [Zyrtec Oral Soln] 5 mg PO DAILY 01/05/19 01/05/19 History Cyclobenzaprine [Flexeril] 2.5 mg PO DAILY PRN 01/05/19 01/05/19 History Dextran/Hypromellose/Glycerin 1 drop BOTH EYES DAILY PRN 01/05/19 01/05/19 History [Genteal Tears 0.1%-0.2%-0.3%] Gentamicin 0.1% Cream 1 applic TOPICAL DAILY PRN 01/05/19 01/05/19 History Pantoprazole Sodium [Protonix] 20 mg PO DAILY 01/05/19 01/05/19 History Pseudoephedrine HCl [Sudafed] 30 mg PO DAILY PRN 01/05/19 01/05/19 History predniSONE 20 mg PO DAILY PRN 01/05/19 01/05/19 History Allergies Allergy/AdvReac Type Severity Reaction Status Date / Time amoxicillin trihydrate Allergy Unknown Verified 01/05/19 13:14 [From Augmentin] bacitracin Allergy Unknown Verified 01/05/19 13:14 [From Neosporin ([id number])] bacitracin zinc Allergy Unknown Verified 01/05/19 13:14 [From Neosporin ([id number])] cephalexin monohydrate Allergy Unknown Verified 01/05/19 13:14 [From Keflex] cortisone Allergy Rash/Hives Verified 01/05/19 13:14 doxycycline Allergy Rash/Hives Verified 01/05/19 13:14 doxylamine Allergy Rash/Hives Verified 01/05/19 13:14 levofloxacin [From Levaquin] Allergy Unknown Verified 01/05/19 13:14 mometasone furoate Allergy Unknown Verified 01/05/19 13:14 [From Nasonex] neomycin sulfate Allergy Unknown Verified 01/05/19 13:14 [From Neosporin ([id number])] omalizumab [From Xolair] Allergy Swelling Verified 01/05/19 13:14 polymyxin B Allergy Unknown Verified 01/05/19 13:14 [From Neosporin ([id number])] potassium clavulanate Allergy Unknown Verified 01/05/19 13:14 [From Augmentin] sulfamethoxazole Allergy Unknown Verified 01/05/19 13:14 [From Bactrim] tobramycin Allergy Swelling Verified 01/05/19 13:14 trimethoprim [From Bactrim] Allergy Unknown Verified 01/05/19 13:14 banana AdvReac food Verified 01/05/19 13:14 sensitivity ciprofloxacin AdvReac Dizziness/n Verified 01/05/19 13:14 ausea Iodinated Contrast Media AdvReac Unknown Verified 01/05/19 13:14 [Iodinated Contrast Media - IV Dye] ketorolac [From Acular] AdvReac Unknown Verified 01/05/19 13:14 ketorolac tromethamine AdvReac Nausea & Verified 01/05/19 13:14 [From Toradol] Vomiting nabumetone [From Relafen] AdvReac Unknown Verified 01/05/19 13:14 omeprazole [From Prilosec] AdvReac Unknown Verified 01/05/19 13:14 pineapple AdvReac food Verified 01/05/19 13:14 sensitivity yeast, dried AdvReac food Verified 01/05/19 13:14 sensitivity teva Allergy Unknown Uncoded 01/05/19 13:14
[~2019-01-07 10:39] MED LIST: LACTATED RINGERS 1,000 ML IV SCH; LIDOCAINE 1% 20 ML VIAL (10MG/ML) FOR IV START INTRADERMA ONE
[2019-01-07] MEDS ORDERED: PROPOFOL 10 MG/ML 20 ML VIAL IV ONE (11:10)
[2019-01-07] MEDS ORDERED: LIDOCAINE 1% INJ 10MG/ML (20 ML MDV) ONE (11:10)
--- NOTE | 2019-01-07 11:31 | P.PCN ---
Date of Procedure: 01/07/19 Description of Procedure: PREOPERATIVE DIAGNOSIS: Gastroesophageal reflux disease. Epigastric abdominal pain POSTOPERATIVE DIAGNOSIS: Gastroesophageal reflux disease. Epigastric abdominal pain OPERATION: Esophagogastroduodenoscopy with biopsies along antrum. SURGEON: Leyla Nguyen MD ANESTHESIA: MAC. INDICATIONS: The patient is a 58-year-old female who presents with a history of reflux disease. Benefits and risks of the procedure were described. Informed consent was obtained. DESCRIPTION: The patient was brought into the endoscopy suite and laid in the left lateral decubitus position. An Olympus gastroscope was passed along the posterior oropharynx down to the distal esophagus where the squamocolumnar junction was encountered at 35 cm from the incisors. The stomach was entered and no bile reflux was found. Additional findings are listed below. Biopsies with cold forceps were obtained of the antrum. The first through third portion of the duodenum was examined and unremarkable. Retroflexion of the scope confirmed Hill grade 2 lower esophageal valve. The squamocolumnar junction demonstrated LA grade A erosive esophagitis. The stomach was desufflated. The patient tolerated the procedure well. FINDINGS: Squamocolumnar junction 35 cm from the incisors. Diaphragmatic hiatus at 36 cm. Hiatal hernia, 1 cm Hill grade 2 lower esophageal valve. LA grade A erosive esophagitis. No active duodenitis. Chronic gastritis mild RECOMMENDATIONS: Upper endoscopy as needed. Plan - Discharge Summary Discharge Rx Participant: No New Discharge Prescriptions: No Action Olopatadine HCl [Patanol] 1 drop BOTH EYES BID PRN PRN Reason: Eye Irritation Montelukast [Singulair] 10 mg PO HS Estradiol Cream [Estrace Cream 0.01%] 1 gm TOPICAL Q7D Aspirin 81 mg PO HS Albuterol Sulfate [Proventil Hfa] 2 puff INHALATION RT-Q4H PRN PRN Reason: Shortness Of Breath Fluticasone/Salmeterol [Advair 250-50 Diskus] 1 puff INHALATION RT-BID Ibuprofen [Motrin] 200 - 400 mg PO Q6HR PRN PRN Reason: Pain Or Fever > 100.5 EPINEPHrine (Auto Inject) [Epipen] 0.3 mg IM ONCE PRN PRN Reason: Anaphylaxis Levalbuterol Nebulized [Xopenex Nebulized] 1.25 mg INHALATION RT-TID PRN PRN Reason: Shortness Of Breath Fluconazole [Diflucan] 100 mg PO BID PRN PRN Reason: yeast infection diphenhydrAMINE [Benadryl] 25 - 50 mg PO HS PRN PRN Reason: Allergy Symptoms Cholecalciferol [Vitamin D3] 5,000 unit PO Q7D Gentamicin 0.1% Cream 1 applic TOPICAL DAILY PRN PRN Reason: Skin Irritation Cyclobenzaprine [Flexeril] 2.5 mg PO DAILY PRN PRN Reason: Pain Butalb/Asprin/Caff 50-325-40Mg [Fiorinal 50-325-40 MG] 1 - 2 cap PO DAILY PRN PRN Reason: migraines Pseudoephedrine HCl [Sudafed] 30 mg PO DAILY PRN PRN Reason: allergies Acetaminophen Tab [Tylenol Tab] 500 mg PO DAILY PRN PRN Reason: Pain Dextran/Hypromellose/Glycerin [Genteal Tears 0.1%-0.2%-0.3%] 1 drop BOTH EYES DAILY PRN PRN Reason: Eye Irritation Pantoprazole Sodium [Protonix] 20 mg PO DAILY Cetirizine HCl [Zyrtec Oral Soln] 5 mg PO DAILY predniSONE 20 mg PO DAILY PRN PRN Reason: allergies Discharge Medication List Albuterol Sulfate [Proventil Hfa] 2 puff INHALATION RT-Q4H PRN 11/11/13 [History] Aspirin 81 mg PO HS 11/11/13 [History] Estradiol Cream [Estrace Cream 0.01%] 1 gm TOPICAL Q7D 11/11/13 [History] Montelukast [Singulair] 10 mg PO HS 11/11/13 [History] Olopatadine HCl [Patanol] 1 drop BOTH EYES BID PRN 11/11/13 [History] Fluticasone/Salmeterol [Advair 250-50 Diskus] 1 puff INHALATION RT-BID 10/10/15 [History] Ibuprofen [Motrin] 200 - 400 mg PO Q6HR PRN 02/08/17 [History] EPINEPHrine (Auto Inject) [Epipen] 0.3 mg IM ONCE PRN 03/01/18 [History] Cholecalciferol [Vitamin D3] 5,000 unit PO Q7D 03/04/18 [History] Fluconazole [Diflucan] 100 mg PO BID PRN 03/04/18 [History] Levalbuterol Nebulized [Xopenex Nebulized] 1.25 mg INHALATION RT-TID PRN 03/04/18 [History] diphenhydrAMINE [Benadryl] 25 - 50 mg PO HS PRN 03/04/18 [History] Acetaminophen Tab [Tylenol Tab] 500 mg PO DAILY PRN 01/05/19 [History] Butalb/Asprin/Caff 50-325-40Mg [Fiorinal 50-325-40 MG] 1 - 2 cap PO DAILY PRN 01/05/19 [History] Cetirizine HCl [Zyrtec Oral Soln] 5 mg PO DAILY 01/05/19 [History] Cyclobenzaprine [Flexeril] 2.5 mg PO DAILY PRN 01/05/19 [History] Dextran/Hypromellose/Glycerin [Genteal Tears 0.1%-0.2%-0.3%] 1 drop BOTH EYES DAILY PRN 01/05/19 [History] Gentamicin 0.1% Cream 1 applic TOPICAL DAILY PRN 01/05/19 [History] Pantoprazole Sodium [Protonix] 20 mg PO DAILY 01/05/19 [History] Pseudoephedrine HCl [Sudafed] 30 mg PO DAILY PRN 01/05/19 [History] predniSONE 20 mg PO DAILY PRN 01/05/19 [History] Follow up Appointment(s)/Referral(s): Leyla Nguyen MD [STAFF PHYSICIAN] - 01/18/19 Patient Instructions/Handouts: *Surgery [facility] - (Anesthesia) Endoscopy Discharge Instructions, Gastroesophageal Reflux Disease (DC) Discharge Disposition: HOME SELF-CARE
[2019-01-07 11:53] VITALS: BP 129/79; PULSE 67
== END 2019-01-07 12:19 | disposition home or self-care (01) ==
LOC: ORWHC2ENDO 10:39
PROVIDERS: ATTEND Surgery Plastic and Reconstructive Surgery
DX: K21.0 Gastro-esophageal reflux disease with esophagitis (principal); K29.50 Unspecified chronic gastritis without bleeding; K44.9 Diaphragmatic hernia without obstruction or gangrene; K22.10 Ulcer of esophagus without bleeding; J45.909 Unspecified asthma, uncomplicated; E78.5 Hyperlipidemia, unspecified; I08.9 Rheumatic multiple valve disease, unspecified; Z90.710 Acquired absence of both cervix and uterus; Z87.891 Personal history of nicotine dependence; Z79.899 Other long term (current) drug therapy; Z79.82 Long term (current) use of aspirin; Z79.818 Long term (current) use of other agents affecting estrogen receptors and estrogen levels; Z79.51 Long term (current) use of inhaled steroids; Z79.1 Long term (current) use of non-steroidal anti-inflammatories (NSAID); Z88.6 Allergy status to analgesic agent; Z88.0 Allergy status to penicillin; Z88.1 Allergy status to other antibiotic agents; Z88.2 Allergy status to sulfonamides; Z88.8 Allergy status to other drugs, medicaments and biological substances; Z91.018 Allergy to other foods; Z91.041 Radiographic dye allergy status; Z91.048 Other nonmedicinal substance allergy status
CPT/HCPCS: 88305; 43239; J2001; J2704

== ENCOUNTER → 2019-05-18 | Outpatient (CLI) | payer OTHER | END | disposition home or self-care (01) | LOC: LABWHC1 15:50 | PROVIDERS: ATTEND Otolaryngology | DX: Z01.82 Encounter for allergy testing (principal) | CPT/HCPCS: 36415 ==

== ENCOUNTER 2019-11-07 19:54 | Observation (INO) | payer OTHER ==
--- NOTE | 2019-11-07 20:39 | ED ---
General Adult HPI - General Chief complaint: Neuro Symptoms/Deficit Stated complaint: Facial Numbness Time Seen by Provider: 11/07/19 20:10 Source: patient Mode of arrival: ambulatory Limitations: no limitations - History of Present Illness Initial comments: Dictation was produced using [employer] dictation software. please excuse any grammatical, word or spelling errors. This patient was cared for during a federal and state declared state of emerg ency secondary to Covid 19 Chief Complaint: 59-year-old female past medical history of asthma, dyslipidemia presents with right facial paresthesias History of Present Illness: 89-year-old female she has been having on and off paresthesias to the right face ongoing for proximally 7 days. She reports that she feels paresthesias to the right forehead and right lower face. States that sometimes it'll affect her lips and sometimes not however does absolutely affect the forehead area. Patient initially saw her primary care doctor where she was told she might have possible Davis's palsy. She was told to take Flexeril. She was then referred to ENT and neurology. When she was evaluated by neurology she was told to go to the emergency department if she had a recurrence of symptoms. Patient states that she actively has symptoms. She describes her symptoms as tingly sensation. She denies any facial weakness. She denies any abnormal sensation to touch. She denies any history of stroke. She has history of asthma and hyperlipidemia. The ROS documented in this emergency department record has been reviewed and confirmed by me. Those systems with pertinent positive or negative responses have been documented in the HPI. All other systems are other negative and/or noncontributory. PHYSICAL EXAM: General Impression: Alert and oriented x3, not in acute distress HEENT: Normocephalic atraumatic, extra-ocular movements intact, pupils equal and reactive to light bilaterally, mucous membranes moist, right tympanic membrane is clear Cardiovascular: Heart regular rate and rhythm Chest: Able to complete full sentences, no retractions, no tachypnea Abdomen: abdomen soft, non-tender, non-distended, no organomegaly Musculoskeletal: Pulses present and equal in all extremities, no peripheral edema Motor: no focal deficits noted Neurological: CN II-XII grossly intact, no focal motor or sensory deficits noted, no sensory deficit to light touch of the face arms or legs, no facial weakness. No periorbital weakness. Skin: Intact with no visualized rashes Psych: Normal affect and mood ED course: 59-year-old male presents with paresthesias to the upper and lower face and the right side. All signs upon arrival are within acceptable limits. NIH is 0. Laboratory evaluation obtained. CBC, metabolic panel is unremarkable. Serum alcohol is negative. CT scans of brain shows no acute processes. Case is discussed with Dr. Zeng cottonseed meat presser for neurology. Patient does not have any physical exam finding or measurable deficit, however she does complain of some asymmetrical paresthesias. Patient be admitted for CVA rule out. Patient given dose of aspirin. Discussed patient case with Dr. Arora who is willing to accept patients care on behalf of the [facility]. - Related Data Home Medications Medication Instructions Recorded Confirmed Albuterol Sulfate [Proventil Hfa] 2 puff INHALATION RT-Q4H PRN 11/11/13 01/07/19 Aspirin 81 mg PO HS 11/11/13 01/05/19 Estradiol Cream [Estrace Cream 1 gm TOPICAL Q7D 11/11/13 01/07/19 0.01%] Montelukast [Singulair] 10 mg PO HS 11/11/13 01/07/19 Olopatadine HCl [Patanol] 1 drop BOTH EYES BID PRN 11/11/13 01/07/19 Fluticasone/Salmeterol [Advair 1 puff INHALATION RT-BID 10/10/15 01/07/19 250-50 Diskus] Ibuprofen [Motrin] 200 - 400 mg PO Q6HR PRN 02/08/17 01/05/19 EPINEPHrine (Auto Inject) [Epipen] 0.3 mg IM ONCE PRN 03/01/18 01/05/19 Cholecalciferol [Vitamin D3] 5,000 unit PO Q7D 03/04/18 01/07/19 Fluconazole [Diflucan] 100 mg PO BID PRN 03/04/18 01/07/19 Levalbuterol Nebulized [Xopenex 1.25 mg INHALATION RT-TID PRN 03/04/18 01/07/19 Nebulized] diphenhydrAMINE [Benadryl] 25 - 50 mg PO HS PRN 03/04/18 01/07/19 Acetaminophen Tab [Tylenol Tab] 500 mg PO DAILY PRN 01/05/19 01/07/19 Butalb/Asprin/Caff 50-325-40Mg 1 - 2 cap PO DAILY PRN 01/05/19 01/07/19 [Fiorinal 50-325-40 MG] Cetirizine HCl [Zyrtec Oral Soln] 5 mg PO DAILY 01/05/19 01/07/19 Cyclobenzaprine [Flexeril] 2.5 mg PO DAILY PRN 01/05/19 01/07/19 Dextran/Hypromellose/Glycerin 1 drop BOTH EYES DAILY PRN 01/05/19 01/07/19 [Genteal Tears 0.1%-0.2%-0.3%] Gentamicin 0.1% Cream 1 applic TOPICAL DAILY PRN 01/05/19 01/07/19 Pantoprazole Sodium [Protonix] 20 mg PO DAILY 01/05/19 01/07/19 Pseudoephedrine HCl [Sudafed] 30 mg PO DAILY PRN 01/05/19 01/07/19 predniSONE [Deltasone] 20 mg PO DAILY PRN 01/05/19 01/07/19 Allergies Allergy/AdvReac Type Severity Reaction Status Date / Time amoxicillin trihydrate Allergy Unknown Verified 01/05/19 13:14 [From Augmentin] bacitracin Allergy Unknown Verified 01/05/19 13:14 [From Neosporin ([id number])] bacitracin zinc Allergy Unknown Verified 01/05/19 13:14 [From Neosporin ([id number])] cephalexin monohydrate Allergy Unknown Verified 01/05/19 13:14 [From Keflex] cortisone Allergy Rash/Hives Verified 01/05/19 13:14 doxycycline Allergy Rash/Hives Verified 01/05/19 13:14 doxylamine Allergy Rash/Hives Verified 01/05/19 13:14 levofloxacin [From Levaquin] Allergy Unknown Verified 01/05/19 13:14 mometasone furoate Allergy Unknown Verified 01/05/19 13:14 [From Nasonex] neomycin sulfate Allergy Unknown Verified 01/05/19 13:14 [From Neosporin ([id number])] omalizumab [From Xolair] Allergy Swelling Verified 01/05/19 13:14 polymyxin B Allergy Unknown Verified 01/05/19 13:14 [From Neosporin ([id number])] potassium clavulanate Allergy Unknown Verified 01/05/19 13:14 [From Augmentin] sulfamethoxazole Allergy Unknown Verified 01/05/19 13:14 [From Bactrim] tobramycin Allergy Swelling Verified 01/05/19 13:14 trimethoprim [From Bactrim] Allergy Unknown Verified 01/05/19 13:14 banana AdvReac food Verified 01/05/19 13:14 sensitivity ciprofloxacin AdvReac Dizziness/n Verified 01/05/19 13:14 ausea Iodinated Contrast Media AdvReac Unknown Verified 01/05/19 13:14 [Iodinated Contrast Media - IV Dye] ketorolac [From Acular] AdvReac Unknown Verified 01/05/19 13:14 ketorolac tromethamine AdvReac Nausea & Verified 01/05/19 13:14 [From Toradol] Vomiting nabumetone [From Relafen] AdvReac Unknown Verified 01/05/19 13:14 omeprazole [From Prilosec] AdvReac Unknown Verified 01/05/19 13:14 pineapple AdvReac food Verified 01/05/19 13:14 sensitivity yeast, dried AdvReac food Verified 01/05/19 13:14 sensitivity teva Allergy Unknown Uncoded 01/05/19 13:14 Review of Systems ROS Statement: Those systems with pertinent positive or pertinent negative responses have been documented in the HPI. ROS Other: All systems not noted in ROS Statement are negative. Past Medical History Past Medical History: Asthma, GERD/Reflux, Hyperlipidemia Additional Past Medical History / Comment(s): Allergic to Teva Brand products , heart valve problem. History of Any Multi-Drug Resistant Organisms: None Reported Past Surgical History: Section, Hysterectomy Additional Past Surgical History / Comment(s): sinus Past Anesthesia/Blood Transfusion Reactions: No Reported Reaction Past Psychological History: No Psychological Hx Reported Past Alcohol Use History: None Reported Past Drug Use History: None Reported - Past Family History Mother Family Medical History: No Reported History General Exam Limitations: no limitations Course Vital Signs 11/07/19 11/07/19 19:56 21:58 Temperature 98.1 F 97.7 F Pulse Rate 67 72 Respiratory 18 17 Rate Blood Pressure 133/74 121/83 O2 Sat by Pulse 98 95 Oximetry Medical Decision Making - Lab Data Result diagrams: 11/07/19 20:13 11/07/19 20:13 Lab Results 11/07/19 11/07/19 11/07/19 Range/Units 20:13 20:13 20:13 WBC 8.0 (3.8-10.6) k/uL RBC 4.50 (3.80-5.40) m/uL Hgb 13.1 (11.4-16.0) gm/dL Hct 40.0 (34.0-46.0) % MCV 88.8 (80.0-100.0) fL MCH 29.1 (25.0-35.0) pg MCHC 32.8 (31.0-37.0) g/dL RDW 11.9 (11.5-15.5) % Plt Count 317 (150-450) k/uL Neutrophils % 60 % Lymphocytes % 29 % Monocytes % 6 % Eosinophils % 2 % Basophils % 1 % Neutrophils # 4.8 (1.3-7.7) k/uL Lymphocytes # 2.4 (1.0-4.8) k/uL Monocytes # 0.5 (0-1.0) k/uL Eosinophils # 0.2 (0-0.7) k/uL Basophils # 0.1 (0-0.2) k/uL Sodium 138 (137-145) mmol/L Potassium 4.0 (3.5-5.1) mmol/L Chloride 103 (98-107) mmol/L Carbon Dioxide 27 (22-30) mmol/L Anion Gap 8 mmol/L BUN 13 (7-17) mg/dL Creatinine 0.97 (0.52-1.04) mg/dL Est GFR (CKD-EPI)AfAm 75 (>60 ml/min/1.73 sqM) Est GFR (CKD-EPI)NonAf 65 (>60 ml/min/1.73 sqM) Glucose 97 (74-99) mg/dL POC Glucose (mg/dL) (75-99) mg/dL POC Glu Sausage Wrapper ID Calcium 9.5 (8.4-10.2) mg/dL Ionized Calcium Raquel 5.0 (4.5-5.3) mg/dL Phosphorus 3.9 (2.5-4.5) mg/dL Magnesium 2.2 (1.6-2.3) mg/dL Troponin I <0.012 (0.000-0.034) ng/mL Serum Alcohol <10 mg/dL 11/07/19 Range/Units 20:59 WBC (3.8-10.6) k/uL RBC (3.80-5.40) m/uL Hgb (11.4-16.0) gm/dL Hct (34.0-46.0) % MCV (80.0-100.0) fL MCH (25.0-35.0) pg MCHC (31.0-37.0) g/dL RDW (11.5-15.5) % Plt Count (150-450) k/uL Neutrophils % % Lymphocytes % % Monocytes % % Eosinophils % % Basophils % % Neutrophils # (1.3-7.7) k/uL Lymphocytes # (1.0-4.8) k/uL Monocytes # (0-1.0) k/uL Eosinophils # (0-0.7) k/uL Basophils # (0-0.2) k/uL Sodium (137-145) mmol/L Potassium (3.5-5.1) mmol/L Chloride (98-107) mmol/L Carbon Dioxide (22-30) mmol/L Anion Gap mmol/L BUN (7-17) mg/dL Creatinine (0.52-1.04) mg/dL Est GFR (CKD-EPI)AfAm (>60 ml/min/1.73 sqM) Est GFR (CKD-EPI)NonAf (>60 ml/min/1.73 sqM) Glucose (74-99) mg/dL POC Glucose (mg/dL) 92 (75-99) mg/dL POC Glu Sausage Wrapper ID Padmini Walter Calcium (8.4-10.2) mg/dL Ionized Calcium Raquel (4.5-5.3) mg/dL Phosphorus (2.5-4.5) mg/dL Magnesium (1.6-2.3) mg/dL Troponin I (0.000-0.034) ng/mL Serum Alcohol mg/dL Disposition Clinical Impression: Facial paresthesia Disposition: ADMITTED IP TO THIS [facility] Condition: Fair Referrals: Domenica Kmep MD [Primary Care Provider] - 1-2 days Decision Time: 22:44
[2019-11-07 21:00] LABS: Glucose,Whole Blood 92 mg/dL (75-99)
[2019-11-07 21:05] LABS: Basophils # (A) 0.1 k/uL (0-0.2); Basophils % (A) 1 %; Eosinophils # (A) 0.2 k/uL (0-0.7); Eosinophils % (A) 2 %; HGB 13.1 gm/dL (11.4-16.0); Lymphocytes # (A) 2.4 k/uL (1.0-4.8); Lymphocytes % (A) 29 %; MCH 29.1 pg (25.0-35.0); MCHC 32.8 g/dL (31.0-37.0); MCV 88.8 fL (80.0-100.0); Mean Platelet Volume 6.9; Monocytes # (A) 0.5 k/uL (0-1.0); Monocytes % (A) 6 %; Neutrophils # (A) 4.8 k/uL (1.3-7.7); Neutrophils % (A) 60 %; Platelet Count 317 k/uL (150-450); RDW 11.9 % (11.5-15.5)
[2019-11-07 21:14] LABS: African American GFR (CKD) 75 (>60 ml/min/1.73 sqM); Alcohol <10 mg/dL; Anion Gap 8 mmol/L; Blood Urea Nitrogen 13 mg/dL (7-17); Calcium 9.5 mg/dL (8.4-10.2); Carbon Dioxide 27 mmol/L (22-30); Chloride 103 mmol/L (98-107); Glucose 97 mg/dL (74-99); Magnesium 2.2 mg/dL (1.6-2.3); Non-African American GFR(CKD) 65 (>60 ml/min/1.73 sqM); Phosphorus 3.9 mg/dL (2.5-4.5); Sodium 138 mmol/L (137-145)
[2019-11-07] MEDS ORDERED: ASPIRIN 81 MG PO STA (22:34)
[2019-11-07] MEDS ORDERED: NALOXONE 0.4 MG/ML 1 ML VIAL IV PRN (22:40)
--- NOTE | 2019-11-07 22:40 | CT ---
EXAM: CT Head Without Intravenous Contrast CLINICAL HISTORY: Its. reason CT Reason: facial tingling TECHNIQUE: Axial computed tomography images of the head/brain without intravenous contrast. This CT exam was performed using one or more of the following dose reduction techniques: automated exposure control, adjustment of the mA and/or kV according to patient size, and/or use of iterative reconstruction technique. COMPARISON: No relevant prior studies available. FINDINGS: Brain: Unremarkable. No hemorrhage. No significant white matter disease. No edema. Ventricles: Unremarkable. No ventriculomegaly. Bones/joints: Unremarkable. No acute fracture. Soft tissues: Unremarkable. Sinuses: Mild mucosal thickening in the posterior right ethmoid air cell. Mastoid air cells: Unremarkable as visualized. No mastoid effusion. Other findings: Functional endoscopic sinonasal surgery changes. IMPRESSION: No acute intracranial pathology.
[2019-11-07] MEDS: SODIUM CHLORIDE 0.9% 1,000 ML IV SCH (23:10)
[2019-11-08] MEDS ORDERED: SYMBICORT 80-4.5 MCG INHALER INHALATION SCH (08:00)
[2019-11-08] MEDS: ADVAIR DISKUS 250/50 INHALATION SCH ×2 (08:26→21:22)
[2019-11-08] MEDS: PANTOPRAZOLE 20MG TABLET PO SCH (08:26)
[2019-11-08] MEDS ORDERED: LORATADINE 10 MG TAB PO PRN (16:50)
--- NOTE | 2019-11-08 16:50 | US ---
EXAMINATION TYPE: US carotid duplex BILAT DATE OF EXAM: 11/08/2019 COMPARISON: Carotid ultrasound 06/15/2009 CLINICAL HISTORY: Possible TIA. Right facial numbness and tingling; prior smoker x 28 years EXAM MEASUREMENTS: RIGHT: Peak Systolic Velocity (PSV) cm/sec ----- Right CCA: 68.0 ----- Right ICA: 66.9 ----- Right ECA: 49.6 ICA/CCA ratio: 1.0 RIGHT: End Diastole cm/sec ----- Right CCA: 21.9 ----- Right ICA: 32.9 ----- Right ECA: 9.5 LEFT: Peak Systolic Velocity (PSV) cm/sec ----- Left CCA: 57.0 ----- Left ICA: 69.4 ----- Left ECA: 56.3 ICA/CCA ratio: 1.2 LEFT: End Diastole cm/sec ----- Left CCA: 16.4 ----- Left ICA: 25.8 ----- Left ECA: 10.1 VERTEBRALS (direction of flow): Right Vertebral: Antegrade Left Vertebral: Antegrade Rhythm: Normal Mild atherosclerotic changes of the bilateral carotid bulbs. IMPRESSION: No hemodynamically significant stenosis of the bilateral carotid arteries. Any stenosis that may be present is less than 50%. Criteria for Assigning % of Stenosis / Diameter reduction (Estimation based on the indirect measurements of the internal carotid artery velocities (ICA PSV). 1. Normal (no stenosis)=ICA PSV < 125 cm/s: ratio < 2.0: ICA EDV<40 cm/s. 2. Less than 50% stenosis=ICA PSV < 125 cm/s: ratio < 2.0: ICA EDV<40 cm/s. 3. 50 to 69% stenosis=ICA PSV of 125 to 230 cm/s: ration 2.0 ? 4.0: ICA EDV 40-100 cm/s. 4. Greater than 70% stenosis to near occlusion= ICA PSV > 230 cm/s: ratio > 4.0: ICA EDV > 100 cm/s. 5. Near occlusion= ICA PSV velocities may be low or undetectable: variable ratio and ICA EDV. 6. Total occlusion=unable to detect flow.
[2019-11-08] MEDS ORDERED: ZYRTEC 1 MG/ML PO PRN (17:13)
--- NOTE | 2019-11-08 17:51 | P.CNNES ---
History of Present Illness Consult date: 11/08/19 Requesting physician: Ariel Roman Reason for Consult: Rule out CVA History of Present Illness: Patient is a 59-year-old female who started having intermittent paresthesias involving right facial region since 11/02/2019. Patient states that on Thursday, she noticed sharp pins and needles sensation involving just below the right lower lateral lip region, which lasted for 10-15 seconds. Right after she started noticing some poking sensation in right side of the cheek and within half an hour extended to whole right side of the face. She took Flexeril 2.5 mg and slept. Next morning the symptoms have resolved. On , she started having some symptoms in the right cheek, which lasted for couple hours. She had recurrence of symptoms in the right facial region off and on over subsequent days. No slurred speech, facial droop, double vision, loss of vision, headache. Denies any symptoms attributed to the extremities, numbness tingling focal weakness or balance issues. She spoke to her primary physician, who felt it could be Davis's palsy. She later spoke to her neurologist, who recommended patient to go to the ER. Patient arrived in the ER yesterday at 8 PM. Patient continues to have paresthesias over the right facial region. No other symptoms otherwise. Patient underwent CT head showed no acute process. Mild mucosal thickening in the posterior right ethmoid air cells. EKG shows normal sinus rhythm. Chem-7, CBC troponin and blood alcohol level negative. Patient does take aspirin 81 mg daily. Also on estradiol cream. Patient's MRI of the brain without contrast on 10/30/2018 and 16 showed stable minimal white matter changes, no new findings identified. Patient had another MRI of the brain on 05/22/2012 for "numbness, stroke", which was negative. Patient's total cholesterol is 220, LDL 138, HDL 54, triglycerides 139, on 02/09/2019. Patient denies hypertension. She in fact has low blood pressures. Denies diabetes. She has hyperlipidemia. She has smoked 1 pack per day for 25 years, quit 15-16 years ago. She has multiple ALLERGIES as listed. Denies any dental pain. Patient has been taking Estrace for the last 10 years. Patient does take aspirin 81 mg daily. Review of Systems All 14 point review systems reviewed and unremarkable except above. Past Medical History Past Medical History: Asthma, GERD/Reflux, Hyperlipidemia Additional Past Medical History / Comment(s): Allergic to Teva Brand products , heart valve problem. History of Any Multi-Drug Resistant Organisms: None Reported Past Surgical History: Section, Hysterectomy Additional Past Surgical History / Comment(s): sinus Past Anesthesia/Blood Transfusion Reactions: No Reported Reaction Past Psychological History: No Psychological Hx Reported Smoking Status: Former smoker Past Alcohol Use History: None Reported Additional Past Alcohol Use History / Comment(s): smoked 30 years 1 ppd quit 2004 Past Drug Use History: None Reported - Past Family History Mother Family Medical History: No Reported History Medications and Allergies Home Medications Medication Instructions Recorded Confirmed Type Aspirin 81 mg PO HS 11/11/13 11/07/19 History Estradiol Cream [Estrace Cream 1 gm TOPICAL SUTH 11/11/13 11/07/19 History 0.01%] Montelukast [Singulair] 10 mg PO HS 11/11/13 11/07/19 History Fluticasone/Salmeterol [Advair 1 puff INHALATION RT-BID 10/10/15 11/07/19 History 250-50 Diskus] EPINEPHrine (Auto Inject) [Epipen] 0.3 mg IM ONCE PRN 03/01/18 11/07/19 History Fluconazole [Diflucan] 100 mg PO SA 03/04/18 11/07/19 History Cetirizine HCl [Zyrtec Oral Soln] 5 mg PO HS 01/05/19 11/07/19 History Pantoprazole Sodium [Protonix] 20 mg PO DAILY 01/05/19 11/07/19 History Cyclobenzaprine [Flexeril] 2.5 mg PO HS 11/08/19 11/08/19 History Allergies Allergy/AdvReac Type Severity Reaction Status Date / Time amoxicillin trihydrate Allergy Unknown Verified 11/07/19 22:52 [From Augmentin] bacitracin Allergy Unknown Verified 11/07/19 22:52 [From Neosporin ([id number])] bacitracin zinc Allergy Unknown Verified 11/07/19 22:52 [From Neosporin ([id number]-[id number])] cephalexin monohydrate Allergy Unknown Verified 11/07/19 22:52 [From Keflex] cortisone Allergy Rash/Hives Verified 11/07/19 22:52 doxycycline Allergy Rash/Hives Verified 11/07/19 22:52 doxylamine Allergy Rash/Hives Verified 11/07/19 22:52 levofloxacin [From Levaquin] Allergy Unknown Verified 11/07/19 22:52 mometasone furoate Allergy Unknown Verified 11/07/19 22:52 [From Nasonex] neomycin sulfate Allergy Unknown Verified 11/07/19 22:52 [From Neosporin ([id number])] omalizumab [From Xolair] Allergy Swelling Verified 11/07/19 22:52 polymyxin B Allergy Unknown Verified 11/07/19 22:52 [From Neosporin ([id number])] potassium clavulanate Allergy Unknown Verified 11/07/19 22:52 [From Augmentin] sulfamethoxazole Allergy Unknown Verified 11/07/19 22:52 [From Bactrim] tobramycin Allergy Swelling Verified 11/07/19 22:52 trimethoprim [From Bactrim] Allergy Unknown Verified 11/07/19 22:52 banana AdvReac food Verified 11/07/19 22:52 sensitivity ciprofloxacin AdvReac Dizziness/n Verified 11/07/19 22:52 ausea Iodinated Contrast Media AdvReac Unknown Verified 11/07/19 22:52 [Iodinated Contrast Media - IV Dye] ketorolac [From Acular] AdvReac Unknown Verified 11/07/19 22:52 ketorolac tromethamine AdvReac Nausea & Verified 11/07/19 22:52 [From Toradol] Vomiting nabumetone [From Relafen] AdvReac Unknown Verified 11/07/19 22:52 omeprazole [From Prilosec] AdvReac Unknown Verified 11/07/19 22:52 pineapple AdvReac food Verified 11/07/19 22:52 sensitivity yeast, dried AdvReac food Verified 11/07/19 22:52 sensitivity teva Allergy Unknown Uncoded 11/07/19 22:52 Physical Examination - Vital Signs Vital Signs: Vital Signs Temp Pulse Pulse Resp BP BP Pulse Ox 11/08/19 10:32 97.3 F L 75 18 127/91 98 11/08/19 07:54 97.8 F 77 16 135/87 97 11/08/19 04:00 97.8 F 83 16 123/76 95 11/07/19 23:38 97.8 F 83 16 123/76 97 11/07/19 21:58 97.7 F 72 17 121/83 95 11/07/19 19:56 98.1 F 67 18 133/74 98 Intake and Output 11/07/19 11/08/19 11/08/19 22:59 06:59 14:59 Intake Total 580 Balance 580 Intake: Oral 580 Other: Voiding Method Toilet Toilet Weight 68.039 kg 68.039 kg On examination patient is a middle aged female, in no acute distress. Patient is alert and awake oriented to time place and person. Speech and language functions are normal. Attention and concentration fund of knowledge is adequate. On cranial examination pupils are round and reactive to light, visual ramirez are full on confrontation, extraocular muscles are intact with no nystagmus. She has very mild right facial asymmetry as compared to the left. Tongue protrudes to the midline. Palatal elevation and sensation normal. Hearing and shoulder shrug normal. On muscle strength testing there is no pronator drift and the strength is normal in arms and legs distally and proximally. Reflexes are 1+ and plantars downgoing. Sensory touch is equal w ith no neglect. No ataxia for [id number] or [id number] testing. Tone and bulk of muscles normal. Gait normal. No carotid bruit or murmur, peripheral pulses are present. Abdomen is soft nontender, chest is clear. Results - Laboratory Findings CBC and BMP: 11/07/19 20:13 11/07/19 20:13 Assessment and Plan Assessment: * Recurrent paresthesias right facial region. Differential diagnosis is between trigeminal nerve irritation (peripheral), versus thalamic lacunar symptom (central). She however has no symptoms related to right sided extremities. No other focal deficits. * Hyperlipidemia * X tobacco use Plan: * Patient will undergo MRI of the brain and MRA of head to evaluate for thalamic lacune, rule out aneurysm and other structural abnormalities respectively. * Patient will undergo carotid Doppler to rule out carotid stenosis. * Hemoglobin A1c, fasting lipid panel * Patient was on aspirin 81 mg daily. The dose has been increased to 325 mg. So far patient has not noticed any improvement so far. We will await above test results.
[2019-11-08] MEDS: ASPIRIN 325 MG TAB PO SCH (17:56)
[2019-11-08] MEDS ORDERED: ZYRTEC 1 MG/ML PO SCH (21:00)
[2019-11-08] MEDS ORDERED: MONTELUKAST 10 MG TAB PO SCH (21:00)
[2019-11-08] MEDS: SODIUM CHLORIDE 0.9% 1,000 ML IV SCH (22:39)
--- NOTE | 2019-11-08 23:28 | P.HPIM ---
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 Patient states that it started with tingling sensation of the right side lower lip and extending up to the cheeks and felt like numbness/tingling sensation. It extended to right forehead as well. Patient was seen by primary care physician was told she might have possible Davis's palsy and was given Flexeril 2.5 mg twice daily which seemed to help but next day symptoms came back again. Patient was seen by ENT on Thursday and no abnormality was detected. Patient had appointment with Dr. Bello, neurology and recommended to go to ER if the symptoms recur, for neurological evaluation. Patient otherwise denied any focal weakness. Does have some headache. No slurred speech or blurry vision. No facial droop. Denied any abdominal sensation in the right upper or lower extremities. Patient had CT of the head done in the ER showed no acute intracranial pathology. EKG showed normal sinus rhythm. Laboratory reviewed CRP less than 5 ESR 40 remaining laboratory data within normal limits. Review of Systems Constitutional: Patient denies any fever or chills . No generalized weakness or weight loss. Abdomen: Patient denied nausea vomiting and diarrhea and abdominal pain. Cardiovascular: Patient denies any chest pain or short of breath no palpitations. Respiratory: patient denied any cough is from production. No shortness of reagan th Neurologic: Patient denied any numbness or tingling headache. Right facial tingling and numbing sensation Musculoskeletal: Patient denies any complaints of joint swelling or deformity. Skin: Negative Psychiatric: Negative Endocrine: No heat or cold intolerance. No recent weight gain. Genitourinary: No dysuria or hematuria. All other 14 point ROS negative except the above Past Medical History Past Medical History: Asthma, GERD/Reflux, Hyperlipidemia Additional Past Medical History / Comment(s): Allergic to [employer] products , heart valve problem. History of Any Multi-Drug Resistant Organisms: None Reported Past Surgical History: Section, Hysterectomy Additional Past Surgical History / Comment(s): sinus Past Anesthesia/Blood Transfusion Reactions: No Reported Reaction Past Psychological History: No Psychological Hx Reported Smoking Status: Former smoker Past Alcohol Use History: None Reported Additional Past Alcohol Use History / Comment(s): smoked 30 years 1 ppd quit 2004 Past Drug Use History: None Reported - Past Family History Mother Family Medical History: No Reported History Medications and Allergies Home Medications Medication Instructions Recorded Confirmed Type Aspirin 81 mg PO HS 11/11/13 11/07/19 History Estradiol Cream [Estrace Cream 1 gm TOPICAL SUTH 11/11/13 11/07/19 History 0.01%] Montelukast [Singulair] 10 mg PO HS 11/11/13 11/07/19 History Fluticasone/Salmeterol [Advair 1 puff INHALATION RT-BID 10/10/15 11/07/19 History 250-50 Diskus] EPINEPHrine (Auto Inject) [Epipen] 0.3 mg IM ONCE PRN 03/01/18 11/07/19 History Fluconazole [Diflucan] 100 mg PO SA 03/04/18 11/07/19 History Cetirizine HCl [Zyrtec Oral Soln] 5 mg PO HS 01/05/19 11/07/19 History Pantoprazole Sodium [Protonix] 20 mg PO DAILY 01/05/19 11/07/19 History Cyclobenzaprine [Flexeril] 2.5 mg PO HS 11/08/19 11/08/19 History Allergies Allergy/AdvReac Type Severity Reaction Status Date / Time amoxicillin trihydrate Allergy Unknown Verified 11/07/19 22:52 [From Augmentin] bacitracin Allergy Unknown Verified 11/07/19 22:52 [From Neosporin ([id number])] bacitracin zinc Allergy Unknown Verified 11/07/19 22:52 [From Neosporin ([id number])] cephalexin monohydrate Allergy Unknown Verified 11/07/19 22:52 [From Keflex] cortisone Allergy Rash/Hives Verified 11/07/19 22:52 doxycycline Allergy Rash/Hives Verified 11/07/19 22:52 doxylamine Allergy Rash/Hives Verified 11/07/19 22:52 levofloxacin [From Levaquin] Allergy Unknown Verified 11/07/19 22:52 mometasone furoate Allergy Unknown Verified 11/07/19 22:52 [From Nasonex] neomycin sulfate Allergy Unknown Verified 11/07/19 22:52 [From Neosporin ([id number])] omalizumab [From Xolair] Allergy Swelling Verified 11/07/19 22:52 polymyxin B Allergy Unknown Verified 11/07/19 22:52 [From Neosporin ([id number])] potassium clavulanate Allergy Unknown Verified 11/07/19 22:52 [From Augmentin] sulfamethoxazole Allergy Unknown Verified 11/07/19 22:52 [From Bactrim] tobramycin Allergy Swelling Verified 11/07/19 22:52 trimethoprim [From Bactrim] Allergy Unknown Verified 11/07/19 22:52 banana AdvReac food Verified 11/07/19 22:52 sensitivity ciprofloxacin AdvReac Dizziness/n Verified 11/07/19 22:52 ausea Iodinated Contrast Media AdvReac Unknown Verified 11/07/19 22:52 [Iodinated Contrast Media - IV Dye] ketorolac [From Acular] AdvReac Unknown Verified 11/07/19 22:52 ketorolac tromethamine AdvReac Nausea & Verified 11/07/19 22:52 [From Toradol] Vomiting nabumetone [From Relafen] AdvReac Unknown Verified 11/07/19 22:52 omeprazole [From Prilosec] AdvReac Unknown Verified 11/07/19 22:52 pineapple AdvReac food Verified 11/07/19 22:52 sensitivity yeast, dried AdvReac food Verified 11/07/19 22:52 sensitivity teva Allergy Unknown Uncoded 11/07/19 22:52 Physical Exam Vitals: Vital Signs Temp Pulse Pulse Resp BP BP Pulse Ox 11/08/19 07:54 97.8 F 77 16 135/87 97 11/08/19 04:00 97.8 F 83 16 123/76 95 11/07/19 23:38 97.8 F 83 16 123/76 97 11/07/19 21:58 97.7 F 72 17 121/83 95 11/07/19 19:56 98.1 F 67 18 133/74 98 Intake and Output 11/07/19 11/08/19 11/08/19 22:59 06:59 14:59 Intake Total 580 Balance 580 Intake: Oral 580 Other: Voiding Method Toilet Toilet Weight 68.039 kg 68.039 kg PHYSICAL EXAMINATION: Patient is lying in the bed comfortably, no acute distress, awake alert and oriented.. HEENT: Normocephalic. Neck is supple. Pupils reactive. Nostrils clear. Oral cavity is moist. Ears reveal no drainage. Neck reveals no JVD, carotid bruits, or thyromegaly. CHEST EXAMINATION: Trachea is central. Symmetrical expansion. Lung ramirez clear to auscultation and percussion. CARDIAC: Normal S1, S2 with no gallops. No murmurs ABDOMEN: Soft. Bowel sounds normal. No organomegaly. No abdominal bruits. Extremities: reveal no edema. No clubbing or cyanosis Neurologically awake, alert, oriented x3 with well-coordinated movements. No focal deficits noted Skin: No rash or skin lesions. Psychiatric: Coperative. Nonsuicidal Musculoskeletal: No joint swelling or deformity. Normal range of motion. Results CBC & Chem 7: 11/07/19 20:13 11/07/19 20:13 Thrombosis Risk Factor Assmnt - Choose All That Apply Any of the Below Risk Factors Present?: Yes Each Factor Represents 1 point: Age 41-60 years Other Risk Factors: No Other congenital or acquired thrombophilia - If yes, enter type in comment: No Thrombosis Risk Factor Assessment Total Risk Factor Score: 1 Thrombosis Risk Factor Assessment Level: Low Risk Assessment and Plan Assessment: Right facial numbness and tingling sensation likely due to trigeminal neuralgia with previous history of Davis's palsy. Rule out CVA. GERD Asthma History of valve regurgitation on follow-up with cardiology as an outpatient Hyperlipidemia Previous history of smoking quit in 2004 DVT prophylaxis Plan: Patient will be continued on aspirin and continue with home medications including Singulair and continue telemetry monitoring. Cardiology neurology was consulted. MRI/MRA of the brain was ordered. Will check A1c, TSH and lipid panel. Further recommendations based on the clinical course. Time with Patient: Greater than 30
[2019-11-09 02:33] LABS: Hemoglobin A1C 5.9 % (4.0-6.0)
[2019-11-09] MEDS: PANTOPRAZOLE 20MG TABLET PO SCH (06:39)
[2019-11-09] MEDS: ADVAIR DISKUS 250/50 INHALATION SCH (09:06)
[2019-11-09] MEDS: ASPIRIN 325 MG TAB PO SCH (09:06)
--- NOTE | 2019-11-09 10:45 | MR ---
MR brain without contrast, MR angiogram of the head without contrast HISTORY: Focal paresthesias, facial tingling Multiplanar multisequence imaging through the brain, [id number] imaging obtained through the circ le of [place] and three-dimensional post processing was performed on an alternate workstation Correlation to CT brain 11/07/2019, prior brain MRI 11/09/2015 FINDINGS: Brain MRI: Brain signal is stable, focal hyperintensity and inversion recovery T2-weighted sequences within the left parietal white matter is again noted measuring 6 mm. Focus adjacent to the anterior l imb of the internal capsule on the left is smaller and measures approximately 3 mm as on prior. There is no hemorrhage or hydrocephalus. Some hyperintensity within the ethmoid air cells is consistent wi th inflammatory change as on prior. Orbits show a stable appearance. Cerebellopontine angles, corpus callosum, pituitary, cervical medullary junction are within normal limits. IMPRESSION: Stable brain MRI, no evident subacute ischemia. [place] MRA: The left vertebral artery is dominant. Internal carotid arteries, posterior cir culation are patent. There is no evident dissection, aneurysm, or embolus. IMPRESSION: Unremarkable [place] MRA
[2019-11-09 11:04] VITALS: RESP 18
--- NOTE | 2019-11-09 14:12 | P.PN ---
Subjective Progress Note Date: 11/09/19 Patient states her symptoms have improved. Still some paresthesias over the middle of the right cheek. No new focal symptoms. Objective - Vital Signs Vital signs: Vital Signs Temp 97.3 F L 11/09/19 12:00 Pulse 81 11/09/19 12:00 Resp 18 11/09/19 12:00 BP 121/81 11/09/19 12:00 Pulse Ox 98 11/09/19 12:00 Intake & Output 11/08/19 11/09/19 11/09/19 18:59 06:59 18:59 Intake Total 2019 600 240 Balance 2019 600 240 Weight 69.5 kg Intake: Oral 2019 600 240 Other: Voiding Method Toilet Toilet Toilet # Voids 1 2 1 - Exam Patient's mental status, speech and language functions are normal. Muscle strength is normal. Cranial nerves normal. No ataxia. - Labs CBC & Chem 7: 11/07/19 20:13 11/07/19 20:13 Assessment and Plan Assessment: * Recurrent paresthesias right facial region. Differential diagnosis is between trigeminal nerve irritation (peripheral), versus thalamic lacunar symptom (central). She however has no symptoms related to right sided extremities. No other focal deficits. * Hyperlipidemia * X tobacco use Plan: * MRI of the brain is completely normal. and MRA of head also normal. No stenosis or aneurysm. * Carotid Doppler normal. * Hemoglobin A1c 5.9, her previous lipid panel showed cholesterol 229, LDL 138, HDL 54, triglycerides 139. Will start Lipitor 20 mg daily. * Patient was on aspirin 81 mg daily. The dose has been increased to 325 mg. * Neurologically clear. * Suggest follow-up with local neurologist, if symptoms recur.
[2019-11-09 16:01] VITALS: BP 105/70; PULSE 80; TEMP 98.1
[2019-11-09] MEDS ORDERED: ATORVASTATIN 20 MG TAB PO SCH (21:00)
--- NOTE | 2019-11-11 08:06 | CDI ---
Documentation Clarification Form Date: 11/11/2019 07:52:00 AM From: Maira Catalan Phone: If you have a question about this query, please contact Ashleigh Serrano Political Advisor at [phone] between 8am and 5pm Admit Date: 11/07/2019 11:33:00 PM Patient Name: Valerio Quigley Visit Number: [id number] Discharge Date: 11/09/2019 06:29:00 PM ATTENTION: The Clinical Documentation Specialists (CDI) and [facility] Coding Staff appreciate your assistance in clarifying documentation. Please respond to the clarification below the line at the bottom and electronically sign. The CDI & [facility] Coding staff will review the response and follow-up if needed. Please note: Queries are made part of the Legal Health Record. If you have any questions, please contact the author of this message via ITS. Dr. Vinod Segovia The patients principal diagnosis has not been clearly identified and requires clarification. H and P documents patient's facial paresthesia is due to tigeminal neuralgia. Neurology documents trigeminal nerve irritation vs. thalmic lacunar symptom central. MRA MRI show stable brain. Please clarify. He/She presented with the following paresthesia recurrent facial History/Risk factors: hx of [place] palsey Radiology findings: MRA and MRI stable brain Vital Signs: 98.1 F, 67 bpm, 18, 133/74, 98% RA Consults: neurology In your professional opinion, can you please clarify which diagnosis, after study, accounted for the patients presenting symptoms and was the reason chiefly responsible for the admission? Trigeminal neuralgia Thalmic lacunar symptom Paresthesia skin Other please specify Unable to determine Trigeminal neuralgia MTDD
--- NOTE | 2019-11-20 19:21 | P.DS ---
Providers Date of admission: 11/07/19 23:33 Expected date of discharge: 11/09/19 Attending physician: Sherry Sen MD Consults: 11/07/19 22:41 Consult Physician Routine Consulting Provider: Natty Carl Consult Reason/Comments: rule out cva Do you want consulting provider notified?: Yes Primary care physician: Domenica Kemp Hospital Course: Discharge diagnosis Right facial numbness and tingling sensation likely due to trigeminal neuralgia with previous history of Davis's palsy vs Trigeminal nerve irritation with patient having braces.. Ruled out CVA. 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 Patient states that it started with tingling sensation of the right side lower lip and extending up to the cheeks and felt like numbness/tingling sensation. It extended to right forehead as well. Patient was seen by primary care physician was told she might have possible Davis's palsy and was given Flexeril 2.5 mg twice daily which seemed to help but next day symptoms came back again. Patient was seen by ENT on Thursday and no abnormality was detected. Patient had appointment with Dr. Bello, neurology and recommended to go to ER if the symptoms recur, for neurological evaluation. Patient otherwise denied any focal weakness. Does have some headache. No slurred speech or blurry vision. No facial droop. Denied any abdominal sensation in the right upper or lower extremities. Patient had CT of the head done in the ER showed no acute intracranial pathology. EKG showed normal sinus rhythm. Laboratory reviewed CRP less than 5 ESR 40 remaining laboratory data within normal limits. 11/09/2019 Patient is currently lying in the bed comfortably. Right-sided facial paresthesias almost resolved. No focal weakness. Patient had MRI and MRV of the brain which was normal. Carotid duplex was normal as well. A1c 5.9 and LDL 138. Patient was started on aspirin, increase the dose to 325 mg daily. Neurology recommends outpatient follow-up. Patient is being discharged home today. PHYSICAL EXAMINATION: Patient is lying in the bed comfortably, no acute distress, awake alert and oriented.. HEENT: Normocephalic. Neck is supple. Pupils reactive. Nostrils clear. Oral cavity is moist. Ears reveal no drainage. Neck reveals no JVD, carotid bruits, or thyromegaly. CHEST EXAMINATION: Trachea is central. Symmetrical expansion. Lung ramirez clear to auscultation and percussion. CARDIAC: Normal S1, S2 with no gallops. No murmurs ABDOMEN: Soft. Bowel sounds normal. No organomegaly. No abdominal bruits. Extremities: reveal no edema. No clubbing or cyanosis Neurologically awake, alert, oriented x3 with well-coordinated movements. No focal deficits noted Skin: No rash or skin lesions. Psychiatric: Coperative. Nonsuicidal Musculoskeletal: No joint swelling or deformity. Normal range of motion. Vital Signs Temp 97.3 F L 11/09/19 12:00 Pulse 81 11/09/19 12:00 Resp 18 11/09/19 12:00 BP 121/81 11/09/19 12:00 Pulse Ox 98 11/09/19 12:00 Intake & Output 11/08/19 11/09/19 11/09/19 18:59 06:59 18:59 Intake Total 2019 600 240 Balance 2019 600 240 Weight 69.5 kg Intake: Oral 2019 600 240 Other: Voiding Method Toilet Toilet Toilet # Voids 1 2 1 Patient Condition at Discharge: Fair Plan - Discharge Summary Discharge Rx Participant: No New Discharge Prescriptions: New Aspirin 325 mg PO DAILY #30 tab Atorvastatin [Lipitor] 20 mg PO HS #30 tab Continue Montelukast [Singulair] 10 mg PO HS Estradiol Cream [Estrace Cream 0.01%] 1 gm TOPICAL SUTH Fluticasone/Salmeterol [Advair 250-50 Diskus] 1 puff INHALATION RT-BID EPINEPHrine (Auto Inject) [Epipen] 0.3 mg IM ONCE PRN PRN Reason: Anaphylaxis Fluconazole [Diflucan] 100 mg PO SA Pantoprazole Sodium [Protonix] 20 mg PO DAILY Cetirizine HCl [Zyrtec Oral Soln] 5 mg PO HS Cyclobenzaprine [Flexeril] 2.5 mg PO HS Discontinued Aspirin 81 mg PO HS Discharge Medication List Estradiol Cream [Estrace Cream 0.01%] 1 gm TOPICAL SUTH 11/11/13 [History] Montelukast [Singulair] 10 mg PO HS 11/11/13 [History] Fluticasone/Salmeterol [Advair 250-50 Diskus] 1 puff INHALATION RT-BID 10/10/15 [History] EPINEPHrine (Auto Inject) [Epipen] 0.3 mg IM ONCE PRN 03/01/18 [History] Fluconazole [Diflucan] 100 mg PO SA 03/04/18 [History] Cetirizine HCl [Zyrtec Oral Soln] 5 mg PO HS 01/05/19 [History] Pantoprazole Sodium [Protonix] 20 mg PO DAILY 01/05/19 [History] Cyclobenzaprine [Flexeril] 2.5 mg PO HS 11/08/19 [History] Aspirin 325 mg PO DAILY #30 tab 11/09/19 [Rx] Atorvastatin [Lipitor] 20 mg PO HS #30 tab 11/09/19 [Rx] Follow up Appointment(s)/Referral(s): Domenica Kemp MD [Primary Care Provider] - 1-2 days (PLEASE CALL OFFICE DURING BUSINESS HOURS TO SCHEDULE APPOINTMENT. ) Patient Instructions/Handouts: Transient Ischemic Attack (DC) Discharge Disposition: HOME SELF-CARE
== END 2019-11-09 18:29 | disposition home or self-care (01) ==
LOC: EC 19:54 → UNDOADMOB 22:40 → 3NCARDOBS 22:40 → 3SCARD 22:40 → OBSVTOIN 23:33 → INTOOBSV 23:33 → 3SCARD 11-08 13:00 → UNDODISIN 11-09 18:29
PROVIDERS: ADMIT Internal Medicine; ATTEND Internal Medicine
DX: G50.0 Trigeminal neuralgia (principal); K21.9 Gastro-esophageal reflux disease without esophagitis; J45.909 Unspecified asthma, uncomplicated; I38 Endocarditis, valve unspecified; E78.5 Hyperlipidemia, unspecified; G89.29 Other chronic pain; M54.9 Dorsalgia, unspecified; M54.2 Cervicalgia; G54.0 Brachial plexus disorders; R03.1 Nonspecific low blood-pressure reading; Z87.891 Personal history of nicotine dependence; Z20.828 Contact with and (suspected) exposure to other viral communicable diseases; Z79.899 Other long term (current) drug therapy; Z79.82 Long term (current) use of aspirin; Z79.890 Hormone replacement therapy; Z79.51 Long term (current) use of inhaled steroids; Z88.0 Allergy status to penicillin; Z88.1 Allergy status to other antibiotic agents; Z88.8 Allergy status to other drugs, medicaments and biological substances; Z88.2 Allergy status to sulfonamides; Z91.041 Radiographic dye allergy status; Z91.018 Allergy to other foods; Z88.6 Allergy status to analgesic agent; Z98.890 Other specified postprocedural states; Z90.710 Acquired absence of both cervix and uterus; Z86.69 Personal history of other diseases of the nervous system and sense organs
CPT/HCPCS: 99285; 36415; 93005; 80048; 85652; 84443; 82330; 83735; 84100; 84484; 85025; 86140; 80320; 83036; 93880; 70450; 70544; 70551; G0378 ×3; U0003

== ENCOUNTER → 2019-11-16 | Outpatient (CLI) | payer OTHER | END | disposition home or self-care (01) | LOC: LABWHC1 11:43 | PROVIDERS: ATTEND Internal Medicine | DX: R19.7 Diarrhea, unspecified (principal) | CPT/HCPCS: U0003; C9803 ==

== ENCOUNTER → 2020-02-17 | Outpatient (CLI) | payer OTHER ==
--- NOTE | 2020-02-20 11:05 | MM ---
Reason for exam: screening (asymptomatic). Last mammogram was performed 1 year and 11 months ago. Physical Findings: A clinical breast exam by your physician is recommended on an annual basis and results should be correlated with mammographic findings. MG Screening Mammo w CAD Bilateral CC and MLO view(s) were taken. Prior study comparison: March 23, 2018, bilateral MG screening mammo w CAD. January 01, 2017, bilateral MG screening mammo w CAD. The breast tissue is heterogeneously dense. This may lower the sensitivity of mammography. There is no discrete abnormality. No significant changes when compared with prior studies. ASSESSMENT: Negative, BI-RAD 1 RECOMMENDATION: Routine screening mammogram of both breasts in 1 year.
== END | disposition home or self-care (01) ==
LOC: RADMAMWWP 11:41
PROVIDERS: ATTEND Obstetrics & Gynecology
DX: Z12.31 Encounter for screening mammogram for malignant neoplasm of breast (principal)
CPT/HCPCS: 77067

== ENCOUNTER 2020-03-19 16:36 | Emergency (ER) | payer OTHER ==
[2020-03-19 16:40] VITALS: TEMP 98.6
--- NOTE | 2020-03-19 17:06 | ED ---
General Adult HPI - General Chief complaint: Shortness of Breath Stated complaint: Covid symptoms, rash Time Seen by Provider: 03/19/20 16:50 Source: patient, RN notes reviewed Mode of arrival: wheelchair Limitations: no limitations - History of Present Illness Initial comments: Patient is a pleasant 60-year-old female presenting to the emergency Department with fever chills and cough. Onset of symptoms was 2 days ago. Patient started with chills and had fevers at night. Symptoms have been waxing and waning. Patient does have cough. Patient has loss of taste and nasal burning. Patient states her may be mild associated dyspnea similar to her previous asthma. No leg pain or leg swelling. Patient has noticed rash diffusely. Rash is not pru ritic or painful and does not bother her at all. - Related Data Home Medications Medication Instructions Recorded Confirmed Estradiol Cream [Estrace Cream 0.5 - 1 gm VAGINAL SA 11/11/13 03/19/20 0.01%] Fluticasone/Salmeterol [Advair 1 puff INHALATION RT-BID 10/10/15 03/19/20 250-50 Diskus] EPINEPHrine (Auto Inject) [Epipen] 0.3 mg IM ONCE PRN 03/01/18 03/19/20 Pantoprazole Sodium [Protonix] 20 mg PO DAILY 01/05/19 03/19/20 Acetaminophen Tab [Tylenol Tab] 1,000 mg PO Q6H PRN 03/19/20 03/19/20 Albuterol Inhaler [Ventolin Hfa 2 puff INHALATION RT-Q4H PRN 03/19/20 03/19/20 Inhaler] Aspirin EC [Ecotrin Low Dose] 81 mg PO HS 03/19/20 03/19/20 Cetirizine HCl [Children's 10 mg PO HS 03/19/20 03/19/20 Cetirizine HCl] Ibuprofen [Motrin Ib] 400 mg PO Q4-6H PRN 03/19/20 03/19/20 Levalbuterol Nebulized [Xopenex 1.25 mg INHALATION RT-BID PRN 03/19/20 03/19/20 Nebulized] Allergies Allergy/AdvReac Type Severity Reaction Status Date / Time amoxicillin trihydrate Allergy Unknown Verified 03/19/20 18:24 [From Augmentin] bacitracin Allergy Unknown Verified 03/19/20 18:24 [From Neosporin ([id number])] bacitracin zinc Allergy Unknown Verified 03/19/20 18:24 [From Neosporin ([id number])] cephalexin monohydrate Allergy Unknown Verified 03/19/20 18:24 [From Keflex] cortisone Allergy Rash/Hives Verified 03/19/20 18:24 doxycycline Allergy Rash/Hives Verified 03/19/20 18:24 doxylamine Allergy Rash/Hives Verified 03/19/20 18:24 levofloxacin [From Levaquin] Allergy Unknown Verified 03/19/20 18:24 mometasone furoate Allergy Unknown Verified 03/19/20 18:24 [From Nasonex] neomycin sulfate Allergy Unknown Verified 03/19/20 18:24 [From Neosporin ([id number])] omalizumab [From Xolair] Allergy Swelling Verified 03/19/20 18:24 polymyxin B Allergy Unknown Verified 03/19/20 18:24 [From Neosporin ([id number])] potassium clavulanate Allergy Unknown Verified 03/19/20 18:24 [From Augmentin] sulfamethoxazole Allergy Unknown Verified 03/19/20 18:24 [From Bactrim] tobramycin Allergy Swelling Verified 03/19/20 18:24 trimethoprim [From Bactrim] Allergy Unknown Verified 03/19/20 18:24 banana AdvReac food Verified 03/19/20 18:24 sensitivity ciprofloxacin AdvReac Dizziness/n Verified 03/19/20 18:24 ausea Iodinated Contrast Media AdvReac Unknown Verified 03/19/20 18:24 [Iodinated Contrast Media - IV Dye] ketorolac [From Acular] AdvReac Unknown Verified 03/19/20 18:24 ketorolac tromethamine AdvReac Nausea & Verified 03/19/20 18:24 [From Toradol] Vomiting nabumetone [From Relafen] AdvReac Unknown Verified 03/19/20 18:24 omeprazole [From Prilosec] AdvReac Unknown Verified 03/19/20 18:24 pineapple AdvReac food Verified 03/19/20 18:24 sensitivity yeast, dried AdvReac food Verified 03/19/20 18:24 sensitivity teva Allergy Unknown Uncoded 03/19/20 18:24 Review of Systems ROS Statement: Those systems with pertinent positive or pertinent negative responses have been documented in the HPI. ROS Other: All systems not noted in ROS Statement are negative. Constitutional: Reports: fever, chills Eyes: Denies: eye pain ENT: Denies: ear pain Respiratory: Reports: as per HPI, cough Cardiovascular: Denies: chest pain Endocrine: Reports: fatigue Gastrointestinal: Denies: abdominal pain Genitourinary: Denies: dysuria Musculoskeletal: Denies: back pain Skin: Reports: as per HPI, rash Past Medical History Past Medical History: Asthma, GERD/Reflux, Hyperlipidemia Additional Past Medical History / Comment(s): Allergic to Teva Brand products , heart valve problem. History of Any Multi-Drug Resistant Organisms: None Reported Past Surgical History: Section, Hysterectomy Additional Past Surgical History / Comment(s): sinus Past Anesthesia/Blood Transfusion Reactions: No Reported Reaction Past Psychological History: No Psychological Hx Reported Smoking Status: Former smoker Past Alcohol Use History: None Reported Past Drug Use History: None Reported - Past Family History Mother Family Medical History: No Reported History General Exam Limitations: no limitations General appearance: alert, in no apparent distress Eye exam: Present: normal appearance Neck exam: Present: normal inspection. Absent: tenderness, meningismus Respiratory exam: Present: normal lung sounds bilaterally Cardiovascular Exam: Present: regular rate, normal rhythm GI/Abdominal exam: Present: soft. Absent: tenderness Extremities exam: Present: normal inspection. Absent: pedal edema, calf tenderness Neurological exam: Present: alert Psychiatric exam: Present: normal affect, normal mood Skin exam: Present: other (Patient has maculopapular rash on her extremities, upper legs greater than arms. Blanchable. Nontender. No warmth.) Course Vital Signs 03/19/20 03/19/20 16:39 17:14 Temperature 98.6 F Pulse Rate 96 Respiratory 18 16 Rate Blood Pressure 109/66 O2 Sat by Pulse 100 Oximetry EKG Findings - EKG Comments: EKG Findings:: Normal sinus rhythm 92. UT 164. QRS 86. QT 378. QTC 467. Normal axis. Normal QRS. No acute ST change. Medical Decision Making - Medical Decision Making Patient reevaluated and resting comfortably in bed. Patient does request discharge home. Patient updated on results and need for follow-up - Lab Data Result diagrams: 03/19/20 17:12 03/19/20 17:12 Lab Results 03/19/20 03/19/20 03/19/20 Range/Units 17:12 17:12 17:12 WBC 5.1 (3.8-10.6) k/uL RBC 4.61 (3.80-5.40) m/uL Hgb 13.9 (11.4-16.0) gm/dL Hct 41.1 (34.0-46.0) % MCV 89.0 (80.0-100.0) fL MCH 30.0 (25.0-35.0) pg MCHC 33.7 (31.0-37.0) g/dL RDW 12.2 (11.5-15.5) % Plt Count 230 (150-450) k/uL MPV 6.8 Neutrophils % 82 % Lymphocytes % 8 % Monocytes % 5 % Eosinophils % 1 % Basophils % 2 % Neutrophils # 4.2 (1.3-7.7) k/uL Lymphocytes # 0.4 L (1.0-4.8) k/uL Monocytes # 0.3 (0-1.0) k/uL Eosinophils # 0.0 (0-0.7) k/uL Basophils # 0.1 (0-0.2) k/uL PT 10.2 (9.0-12.0) sec INR 1.0 (<1.2) APTT 27.2 (22.0-30.0) sec Sodium 134 L (137-145) mmol/L Potassium 3.7 (3.5-5.1) mmol/L Chloride 101 (98-107) mmol/L Carbon Dioxide 26 (22-30) mmol/L Anion Gap 7 mmol/L BUN 13 (7-17) mg/dL Creatinine 1.28 H (0.52-1.04) mg/dL Est GFR (CKD-EPI)AfAm 54 (>60 ml/min/1.73 sqM) Est GFR (CKD-EPI)NonAf 46 (>60 ml/min/1.73 sqM) Glucose 118 H (74-99) mg/dL Plasma Lactic Acid Moises (0.7-2.0) mmol/L Calcium 8.9 (8.4-10.2) mg/dL Magnesium 2.1 (1.6-2.3) mg/dL Total Bilirubin 0.5 (0.2-1.3) mg/dL AST 57 H (14-36) U/L ALT 46 H (4-34) U/L Alkaline Phosphatase 95 (38-126) U/L Lactate Dehydrogenase 590 (313-618) U/L C-Reactive Protein 33.6 H (<10.0) mg/L Total Protein 7.0 (6.3-8.2) g/dL Albumin 3.9 (3.5-5.0) g/dL Coronavirus (PCR) (Not Detectd) 03/19/20 03/19/20 Range/Units 17:12 18:05 WBC (3.8-10.6) k/uL RBC (3.80-5.40) m/uL Hgb (11.4-16.0) gm/dL Hct (34.0-46.0) % MCV (80.0-100.0) fL MCH (25.0-35.0) pg MCHC (31.0-37.0) g/dL RDW (11.5-15.5) % Plt Count (150-450) k/uL MPV Neutrophils % % Lymphocytes % % Monocytes % % Eosinophils % % Basophils % % Neutrophils # (1.3-7.7) k/uL Lymphocytes # (1.0-4.8) k/uL Monocytes # (0-1.0) k/uL Eosinophils # (0-0.7) k/uL Basophils # (0-0.2) k/uL PT (9.0-12.0) sec INR (<1.2) APTT (22.0-30.0) sec Sodium (137-145) mmol/L Potassium (3.5-5.1) mmol/L Chloride (98-107) mmol/L Carbon Dioxide (22-30) mmol/L Anion Gap mmol/L BUN (7-17) mg/dL Creatinine (0.52-1.04) mg/dL Est GFR (CKD-EPI)AfAm (>60 ml/min/1.73 sqM) Est GFR (CKD-EPI)NonAf (>60 ml/min/1.73 sqM) Glucose (74-99) mg/dL Plasma Lactic Acid Moises 1.5 (0.7-2.0) mmol/L Calcium (8.4-10.2) mg/dL Magnesium (1.6-2.3) mg/dL Total Bilirubin (0.2-1.3) mg/dL AST (14-36) U/L ALT (4-34) U/L Alkaline Phosphatase (38-126) U/L Lactate Dehydrogenase (313-618) U/L C-Reactive Protein (<10.0) mg/L Total Protein (6.3-8.2) g/dL Albumin (3.5-5.0) g/dL Coronavirus (PCR) Detected A (Not Detectd) - Radiology Data Radiology results: image reviewed (X-ray shows no acute process) Disposition Clinical Impression: COVID-19 Disposition: HOME SELF-CARE Condition: Stable Instructions (If sedation given, give patient instructions): Acute Cough (ED) Additional Instructions: Please follow-up with primary care physician in the next couple days for recheck. [id number] vitamin C, vitamin D, and zinc daily. Return for difficulty breathing, not tolerating oral intake, worsening symptoms or other concerns. Please cords in yourself 10 days from the onset of symptoms if you remain fever free. Is patient prescribed a controlled substance at d/c from ED?: No Referrals: Domenica Kemp MD [Primary Care Provider] - 1-2 days Time of Disposition: 18:39
[2020-03-19 17:20] VITALS: RESP 16
[2020-03-19 17:25] LABS: Basophils # (A) 0.1 k/uL (0-0.2); Basophils % (A) 2 %; Eosinophils % (A) 1 %; HCT 41.1 % (34.0-46.0); HGB 13.9 gm/dL (11.4-16.0); Lymphocytes # (A) 0.4 k/uL (1.0-4.8); Lymphocytes % (A) 8 %; MCHC 33.7 g/dL (31.0-37.0); Mean Platelet Volume 6.8; Monocytes # (A) 0.3 k/uL (0-1.0); Monocytes % (A) 5 %; Neutrophils # (A) 4.2 k/uL (1.3-7.7); Neutrophils % (A) 82 %; Platelet Count 230 k/uL (150-450); RBC 4.61 m/uL (3.80-5.40); RDW 12.2 % (11.5-15.5); WBC 5.1 k/uL (3.8-10.6)
--- NOTE | 2020-03-19 17:35 | XR ---
EXAMINATION TYPE: XR chest 1V portable DATE OF EXAM: 03/19/2020 COMPARISON: 03/04/2018 HISTORY: Upper respiratory infection TECHNIQUE: Single view FINDINGS: Heart and mediastinum are normal. Lungs are clear. Diaphragm is normal. There are no hilar masses. Bony thorax is intact. IMPRESSION: Normal chest. There is clearing of the small area of infiltrate at the lung bases compare d to old exam.
[2020-03-19 17:37] LABS: Albumin 3.9 g/dL (3.5-5.0); C Reactive Protein 33.6 mg/L (<10.0); Calcium 8.9 mg/dL (8.4-10.2); Magnesium 2.1 mg/dL (1.6-2.3); Potassium 3.7 mmol/L (3.5-5.1); Total Bilirubin 0.5 mg/dL (0.2-1.3)
[2020-03-19 17:42] LABS: Partial Thromboplastin Time 27.2 sec (22.0-30.0); Prothrombin Time 10.2 sec (9.0-12.0)
[2020-03-19 19:28] VITALS: BP 107/66; PULSE 90
[2020-03-20 01:22] LABS: Ferritin 361.5 ng/mL (10.0-291.0)
== END 2020-03-19 18:40 | disposition home or self-care (01) ==
LOC: EC 16:36
DX: U07.1 COVID-19 (principal); J45.909 Unspecified asthma, uncomplicated; K21.9 Gastro-esophageal reflux disease without esophagitis; Z79.82 Long term (current) use of aspirin; Z79.51 Long term (current) use of inhaled steroids; Z79.899 Other long term (current) drug therapy; Z88.0 Allergy status to penicillin; Z88.1 Allergy status to other antibiotic agents; Z88.8 Allergy status to other drugs, medicaments and biological substances; Z88.2 Allergy status to sulfonamides; Z91.018 Allergy to other foods; Z91.041 Radiographic dye allergy status; Z88.5 Allergy status to narcotic agent; Z91.048 Other nonmedicinal substance allergy status; Z87.891 Personal history of nicotine dependence
CPT/HCPCS: 36415; 71045; 80053; 82728; 83605; 83615; 83735; 84145; 85025; 85610; 85730; 86140; 87040; 87635; 93005; 99285

== ENCOUNTER 2020-03-22 13:22 | Emergency (ER) | payer OTHER ==
[2020-03-22 13:39] VITALS: RESP 18; TEMP 98
[2020-03-22] MEDS ORDERED: SODIUM CHLORIDE 0.9% 500 ML 500 ML IV STA (14:21)
[2020-03-22 14:56] VITALS: BP 102/64; PULSE 86
[2020-03-22 14:58] LABS: Basophils % (A) 0 %; Eosinophils # (A) 0.3 k/uL (0-0.7); Eosinophils % (A) 7 %; HCT 39.8 % (34.0-46.0); HGB 13.4 gm/dL (11.4-16.0); Lymphocytes # (A) 0.5 k/uL (1.0-4.8); Lymphocytes % (A) 14 %; MCH 29.5 pg (25.0-35.0); MCHC 33.6 g/dL (31.0-37.0); MCV 87.8 fL (80.0-100.0); Mean Platelet Volume 6.9; Monocytes # (A) 0.1 k/uL (0-1.0); Monocytes % (A) 2 %; Neutrophils # (A) 2.8 k/uL (1.3-7.7); Neutrophils % (A) 76 %; Platelet Count 209 k/uL (150-450); RBC 4.53 m/uL (3.80-5.40); RDW 12.4 % (11.5-15.5); WBC 3.6 k/uL (3.8-10.6)
[2020-03-22 15:09] LABS: INR 0.9 (<1.2); Partial Thromboplastin Time 26.4 sec (22.0-30.0); Prothrombin Time 9.7 sec (9.0-12.0)
[2020-03-22 15:15] LABS: Albumin 3.6 g/dL (3.5-5.0); Calcium 8.2 mg/dL (8.4-10.2); Potassium 3.6 mmol/L (3.5-5.1); Total Bilirubin 0.5 mg/dL (0.2-1.3); Total Protein 6.5 g/dL (6.3-8.2)
--- NOTE | 2020-03-22 15:36 | ED ---
General Adult HPI - General Chief complaint: Skin/Abscess/Foreign Body Stated complaint: Revisit,COVID+,Rash Time Seen by Provider: 03/22/20 13:51 Source: patient, RN notes reviewed Mode of arrival: ambulatory Limitations: no limitations - History of Present Illness Initial comments: 60-year-old female with a past medical history of asthma, hyperlipidemia, GERD presents to the emergency room for a chief complaint of rash. Patient states that 5 days ago she started to develop a rash. States that she came to the emergency room 4 days ago and tested positive for covert. Patient reports that since that time the rash has worsened significantly. She denies pain or itching. Patient denies any swelling of her lips tongue or throat, shortness of breath, or chest pain. She does admit to mild cough. Patient states that she wants to make sure the rash is nothing serious. Her was concerned because it is worsening.Patient has no other complaints at this time including shortness of breath, chest pain, abdominal pain, nausea or vomiting, headache, or visual changes. - Related Data Home Medications Medication Instructions Recorded Confirmed Estradiol Cream [Estrace Cream 0.5 - 1 gm VAGINAL SA 11/11/13 03/22/20 0.01%] Fluticasone/Salmeterol [Advair 1 puff INHALATION RT-BID 10/10/15 03/22/20 250-50 Diskus] EPINEPHrine (Auto Inject) [Epipen] 0.3 mg IM ONCE PRN 03/01/18 03/22/20 Pantoprazole Sodium [Protonix] 20 mg PO DAILY 01/05/19 03/22/20 Acetaminophen Tab [Tylenol Tab] 1,000 mg PO Q6H PRN 03/19/20 03/22/20 Albuterol Inhaler [Ventolin Hfa 2 puff INHALATION RT-Q4H PRN 03/19/20 03/22/20 Inhaler] Aspirin EC [Ecotrin Low Dose] 81 mg PO HS 03/19/20 03/22/20 Cetirizine HCl [Children's 10 mg PO HS 03/19/20 03/22/20 Cetirizine HCl] Ibuprofen [Motrin Ib] 400 mg PO Q4-6H PRN 03/19/20 03/22/20 Levalbuterol Nebulized [Xopenex 1.25 mg INHALATION RT-BID PRN 03/19/20 03/22/20 Nebulized] Allergies Allergy/AdvReac Type Severity Reaction Status Date / Time amoxicillin trihydrate Allergy Unknown Verified 03/22/20 14:25 [From Augmentin] bacitracin Allergy Unknown Verified 03/22/20 14:25 [From Neosporin ([id number])] bacitracin zinc Allergy Unknown Verified 03/22/20 14:25 [From Neosporin ([id number])] cephalexin monohydrate Allergy Unknown Verified 03/22/20 14:25 [From Keflex] cortisone Allergy Rash/Hives Verified 03/22/20 14:25 doxycycline Allergy Rash/Hives Verified 03/22/20 14:25 doxylamine Allergy Rash/Hives Verified 03/22/20 14:25 levofloxacin [From Levaquin] Allergy Unknown Verified 03/22/20 14:25 mometasone furoate Allergy Unknown Verified 03/22/20 14:25 [From Nasonex] neomycin sulfate Allergy Unknown Verified 03/22/20 14:25 [From Neosporin ([id number])] omalizumab [From Xolair] Allergy Swelling Verified 03/22/20 14:25 polymyxin B Allergy Unknown Verified 03/22/20 14:25 [From Neosporin ([id number])] potassium clavulanate Allergy Unknown Verified 03/22/20 14:25 [From Augmentin] sulfamethoxazole Allergy Unknown Verified 03/22/20 14:25 [From Bactrim] tobramycin Allergy Swelling Verified 03/22/20 14:25 trimethoprim [From Bactrim] Allergy Unknown Verified 03/22/20 14:25 banana AdvReac food Verified 03/22/20 14:25 sensitivity ciprofloxacin AdvReac Dizziness/n Verified 03/22/20 14:25 ausea Iodinated Contrast Media AdvReac Unknown Verified 03/22/20 14:25 [Iodinated Contrast Media - IV Dye] ketorolac [From Acular] AdvReac Unknown Verified 03/22/20 14:25 ketorolac tromethamine AdvReac Nausea & Verified 03/22/20 14:25 [From Toradol] Vomiting nabumetone [From Relafen] AdvReac Unknown Verified 03/22/20 14:25 omeprazole [From Prilosec] AdvReac Unknown Verified 03/22/20 14:25 pineapple AdvReac food Verified 03/22/20 14:25 sensitivity yeast, dried AdvReac food Verified 03/22/20 14:25 sensitivity teva Allergy Unknown Uncoded 03/22/20 13:41 Review of Systems ROS Statement: Those systems with pertinent positive or pertinent negative responses have been documented in the HPI. ROS Other: All systems not noted in ROS Statement are negative. Past Medical History Past Medical History: Asthma, GERD/Reflux, Hyperlipidemia Additional Past Medical History / Comment(s): Allergic to Teva Brand products , heart valve problem. History of Any Multi-Drug Resistant Organisms: None Reported Past Surgical History: Section, Hysterectomy Additional Past Surgical History / Comment(s): sinus Past Anesthesia/Blood Transfusion Reactions: No Reported Reaction Past Psychological History: No Psychological Hx Reported Smoking Status: Former smoker Past Alcohol Use History: None Reported Past Drug Use History: None Reported - Past Family History Mother Family Medical History: No Reported History General Exam Limitations: no limitations General appearance: alert, in no apparent distress Head exam: Present: atraumatic, normocephalic, normal inspection Eye exam: Present: normal appearance, PERRL, EOMI. Absent: scleral icterus, conjunctival injection, periorbital swelling ENT exam: Present: normal exam, mucous membranes moist Neck exam: Present: normal inspection, full ROM. Absent: tenderness, meningismus, lymphadenopathy Respiratory exam: Present: normal lung sounds bilaterally. Absent: respiratory distress, wheezes, rales, rhonchi, stridor Cardiovascular Exam: Present: regular rate, normal rhythm, normal heart sounds. Absent: systolic murmur, diastolic murmur, rubs, gallop, clicks GI/Abdominal exam: Present: soft, normal bowel sounds. Absent: distended, tende rness, guarding, rebound, rigid Skin exam: Present: rash (Patient has erythematous coalescing macular rash noted to extremities and torso worse in intertriginous areas) Course Vital Signs 03/22/20 03/22/20 13:34 14:53 Temperature 98 F Pulse Rate 95 86 Respiratory 18 18 Rate Blood Pressure 93/67 102/64 O2 Sat by Pulse 97 99 Oximetry Medical Decision Making - Medical Decision Making Vitals are stable. Patient initially did have a blood pressure of 93/67. However I repeated this and it was 112/77. Third repeat 102/64. I did review blood pressure from previous visits and this is within the patient's normal range. CBC sows mild lymphocytosis consistent with Coban. CMP shows a creatinine of 1.39, patient was given some fluids parenterally. She denies shortness of breath chest pain or weakness. Patient's main concern is her rash. Her rash is macular erythematous and coalescing worse in intertriginous areas. This was evaluated by Dr. Mathews as well. At this time this is likely a viral rash associated with Covid. It is recommended the patient continue to monitor symptoms and return for worsening symptoms. Otherwise she will follow-up with her doctor in one to 2 days. - Lab Data Result diagrams: 03/22/20 14:46 03/22/20 14:46 Lab Results 03/22/20 03/22/20 03/22/20 Range/Units 14:46 14:46 14:46 WBC 3.6 L (3.8-10.6) k/uL RBC 4.53 (3.80-5.40) m/uL Hgb 13.4 (11.4-16.0) gm/dL Hct 39.8 (34.0-46.0) % MCV 87.8 (80.0-100.0) fL MCH 29.5 (25.0-35.0) pg MCHC 33.6 (31.0-37.0) g/dL RDW 12.4 (11.5-15.5) % Plt Count 209 (150-450) k/uL MPV 6.9 Neutrophils % 76 % Lymphocytes % 14 % Monocytes % 2 % Eosinophils % 7 % Basophils % 0 % Neutrophils # 2.8 (1.3-7.7) k/uL Lymphocytes # 0.5 L (1.0-4.8) k/uL Monocytes # 0.1 (0-1.0) k/uL Eosinophils # 0.3 (0-0.7) k/uL Basophils # 0.0 (0-0.2) k/uL PT 9.7 (9.0-12.0) sec INR 0.9 (<1.2) APTT 26.4 (22.0-30.0) sec Sodium 134 L (137-145) mmol/L Potassium 3.6 (3.5-5.1) mmol/L Chloride 99 (98-107) mmol/L Carbon Dioxide 31 H (22-30) mmol/L Anion Gap 4 mmol/L BUN 14 (7-17) mg/dL Creatinine 1.39 H (0.52-1.04) mg/dL Est GFR (CKD-EPI)AfAm 48 (>60 ml/min/1.73 sqM) Est GFR (CKD-EPI)NonAf 42 (>60 ml/min/1.73 sqM) Glucose 109 H (74-99) mg/dL Calcium 8.2 L (8.4-10.2) mg/dL Total Bilirubin 0.5 (0.2-1.3) mg/dL AST 69 H (14-36) U/L ALT 40 H (4-34) U/L Alkaline Phosphatase 86 (38-126) U/L Total Protein 6.5 (6.3-8.2) g/dL Albumin 3.6 (3.5-5.0) g/dL Disposition Clinical Impression: COVID-19, Rash Disposition: HOME SELF-CARE Condition: Good Instructions (If sedation given, give patient instructions): Acute Rash (ED) Additional Instructions: Please continue to quarantine. Drink plenty of fluids. Take Tylenol for fevers. Follow-up with your doctor. If you have any worsening symptoms return to the emergency room. Is patient prescribed a controlled substance at d/c from ED?: No Referrals: Domenica Kemp MD [Primary Care Provider] - 1-2 days Time of Disposition: 15:39
[2020-03-22] MEDS ORDERED: DEXAMETHASONE SOD PHOSPHATE 10 MG/ML 1 ML VIAL IV STA (15:45)
[2020-03-22] MEDS ORDERED: predniSONE 20 MG TAB PO STA (15:46)
== END 2020-03-22 16:09 | disposition home or self-care (01) ==
LOC: EC 13:22
DX: U07.1 COVID-19 (principal); R21 Rash and other nonspecific skin eruption; J45.909 Unspecified asthma, uncomplicated; K21.9 Gastro-esophageal reflux disease without esophagitis; Z79.51 Long term (current) use of inhaled steroids; Z79.899 Other long term (current) drug therapy; Z88.0 Allergy status to penicillin; Z88.1 Allergy status to other antibiotic agents; Z88.2 Allergy status to sulfonamides; Z88.8 Allergy status to other drugs, medicaments and biological substances; Z88.5 Allergy status to narcotic agent; Z91.041 Radiographic dye allergy status; Z91.018 Allergy to other foods; Z87.891 Personal history of nicotine dependence
CPT/HCPCS: 36415; 80053; 85025; 85610; 85730; 96360; 99283

== ENCOUNTER → 2020-04-27 | Outpatient (CLI) | payer OTHER | END | disposition home or self-care (01) | LOC: LABWHC1 12:49 | PROVIDERS: ATTEND Internal Medicine | DX: U07.1 COVID-19 (principal) | CPT/HCPCS: U0003; C9803; U0005 ==

== ENCOUNTER → 2020-05-01 | Outpatient (CLI) | payer OTHER ==
--- NOTE | 2020-05-01 12:35 | XR ---
EXAMINATION TYPE: XR chest 2V DATE OF EXAM: 05/01/2020 COMPARISON: 03/19/2020 INDICATION: Short of breath, Covid one month prior TECHNIQUE: Frontal and lateral views of the chest are obtained. FINDINGS: The heart size is normal. The pulmonary vasculature is normal. The lungs are clear. IMPRESSION: 1. No acute pulmonary process.
== END | disposition home or self-care (01) ==
LOC: RADXRYALE 11:59
PROVIDERS: ATTEND Internal Medicine
DX: R06.02 Shortness of breath (principal)
CPT/HCPCS: 71046

== ENCOUNTER → 2020-05-28 | Outpatient (CLI) | payer OTHER | END | disposition home or self-care (01) | LOC: LABWHC1 12:37 | PROVIDERS: ATTEND Nurse Practitioner Family | DX: J30.89 Other allergic rhinitis (principal) | CPT/HCPCS: 36415 ==

== ENCOUNTER → 2020-06-12 | Outpatient (CLI) | payer OTHER | END | disposition home or self-care (01) | LOC: CPPFTMAIN 15:51 | PROVIDERS: ATTEND Internal Medicine Critical Care Medicine | DX: J45.909 Unspecified asthma, uncomplicated (principal); R94.2 Abnormal results of pulmonary function studies | CPT/HCPCS: 94060; 94726; 94729 ==

== ENCOUNTER → 2020-08-15 | Outpatient (CLI) | payer OTHER ==
--- NOTE | 2020-08-15 14:02 | MR ---
EXAMINATION TYPE: MR brain and iac wo/w con DATE OF EXAM: 08/15/2020 12:59 PM COMPARISON: NONE HISTORY: Hearing loss TECHNIQUE: Multiplanar and multispin-echo imaging of the brain was performed both before and after the administr ation of contrast. High-resolution images are obtained of the internal auditory canals performed uti lizing 7 mL intravenous Gadavist contrast. The ventricles, basal cisterns and sulci overlying the cerebral convexities are within normal limits. There is no evidence for midline shift or mass effect. Acute intracranial hemorrhage or extra-axial collection is not evident. There are no abnormal areas of increased or decreased signal intensity within the brain parenchyma. High-resolution imaging of the internal auditory canals fails demonstrate evidence for an enhancing a coustic schwannoma or cerebellopontine cistern angle mass. Following contrast administration, there is no evidence for pathologic enhancement or enhancing mass. Mild chronic sinusitis. Mastoid air cells are well-aerated. IMPRESSION: 1. No evidence of acoustic schwannoma or cerebellopontine angle mass.
== END | disposition home or self-care (01) ==
LOC: RADMRIMAIN 11:16
PROVIDERS: ATTEND Nurse Practitioner Family
DX: H91.90 Unspecified hearing loss, unspecified ear (principal)
CPT/HCPCS: 70553; A9585

== ENCOUNTER → 2021-03-11 | Outpatient (CLI) | payer OTHER ==
--- NOTE | 2021-03-12 11:45 | MM ---
Reason for exam: screening (asymptomatic). Last mammogram was performed 1 year and 1 month ago. History: Patient has history of other cancer at age 26. Taking estrogen for 10 years beginning at age 51. Physical Findings: A clinical breast exam by your physician is recommended on an annual basis and results should be correlated with mammographic findings. MG Screening Mammo w CAD Bilateral CC and MLO view(s) were taken. Prior study comparison: February 17, 2020, bilateral MG screening mammo w CAD. March 23, 2018, bilateral MG screening mammo w CAD. There are scattered fibroglandular densities. There are benign appearing round calcifications in the right breast. There is no discrete abnormality. ASSESSMENT: Benign, BI-RAD 2 RECOMMENDATION: Routine screening mammogram of both breasts in 1 year.
== END | disposition home or self-care (01) ==
LOC: RADMAMWWP 10:04
PROVIDERS: ATTEND Obstetrics & Gynecology
DX: Z12.31 Encounter for screening mammogram for malignant neoplasm of breast (principal); Z85.89 Personal history of malignant neoplasm of other organs and systems; R92.1 Mammographic calcification found on diagnostic imaging of breast
CPT/HCPCS: 77067

== ENCOUNTER → 2021-06-04 | Outpatient (CLI) | payer OTHER ==
[2021-06-04 19:09] LABS: Protein, Total 7.4 g/dL (6.2-8.2)
[2021-06-05 13:20] LABS: Free Kappa Lt Chain Qnt, Serum 2.09 mg/dL (0.33-1.94); Free Lambda Lt Chain Qnt, Seru 1.54 mg/dL (0.57-2.63)
[2021-06-07 10:28] LABS: Albumin 4.54 g/dL (3.80-4.90); Gamma Globulin 1.1 g/dL (0.70-1.50)
== END | disposition home or self-care (01) ==
LOC: LABWHC1 12:46
PROVIDERS: ATTEND Nurse Practitioner Family
DX: D80.8 Other immunodeficiencies with predominantly antibody defects (principal); E78.5 Hyperlipidemia, unspecified
CPT/HCPCS: 36415; 83883; 84165

== ENCOUNTER → 2021-08-06 | Outpatient (CLI) | payer OTHER | END | disposition home or self-care (01) | LOC: LABWHC1 14:38 | PROVIDERS: ATTEND Nurse Practitioner Family | DX: J30.89 Other allergic rhinitis (principal) | CPT/HCPCS: 36415 ==

== ENCOUNTER → 2022-03-27 | Outpatient (CLI) | payer OTHER ==
--- NOTE | 2022-03-28 13:36 | MM ---
Reason for Exam: Screening (asymptomatic). Last mammogram was performed 1 year(s) and 1 month(s) ago. Patient History: Menarche at age 14. First Full-Term at age 19. Hysterectomy at age 26. Postmenopausal. Currently using Estrogen, beginning at age 51 for 10 years. Risk Values: Roxanne 5 year model risk: 1.0%. NCI Lifetime model risk: 5.3%. Prior Study Comparison: 01/18/2015 Bilateral Screening Mammogram, [facility]. 01/01/2017 Bilateral Screening Mammogram, [facility]. 03/23/2018 Bilateral Screening Mammogram, [facility]. 02/17/2020 Bilateral Screening Mammogram, [facility]. 03/11/2021 Bilateral Screening Mammogram, [facility]. Tissue Density: There are scattered fibroglandular densities. Findings: Analyzed By CAD. Pattern appears symmetrical and stable. No significant interval change is evident. No suspicious groups of microcalcifications, spiculated or lobular masses, architectural distortion or other secondary signs of malignancy are mammographically apparent. Overall Assessment: Benign, BI-RAD 2 Management: Screening Mammogram of both breasts in 1 year. A negative mammogram report should not preclude additional follow up of suspicious palpable abnormalities. Patient should continue monthly self breast exam. A clinical breast exam by your physician is recommended on an annual basis and results should be correlated with mammographic findings. Electronically signed and approved by: Akil Gama D.O. Radiologis
== END | disposition home or self-care (01) ==
LOC: RADMAMWWP 13:08
PROVIDERS: ATTEND Obstetrics & Gynecology
DX: Z12.31 Encounter for screening mammogram for malignant neoplasm of breast (principal); Z78.0 Asymptomatic menopausal state
CPT/HCPCS: 77067

== ENCOUNTER → 2023-01-16 | Outpatient (CLI) | payer OTHER ==
[2023-01-16 20:45] LABS: Clam IgE <0.10 kU/L; Codfish IgE <0.10 kU/L; Egg White IgE <0.10 kU/L; Peanut IgE <0.10 kU/L; Scallop IgE <0.10 kU/L; Shrimp IgE <0.10 kU/L; Soybean IgE <0.10 kU/L; Walnut IgE (Food) <0.10 kU/L
== END | disposition home or self-care (01) ==
LOC: LABWHC1 11:27
PROVIDERS: ATTEND Otolaryngology
DX: J30.89 Other allergic rhinitis (principal)
CPT/HCPCS: 36415; 82785; 86003

== ENCOUNTER → 2023-01-23 | Outpatient (CLI) | payer OTHER ==
[2023-01-26 11:40] LABS: Salmon IgE <0.10 kU/L (<0.10); Salmon IgE Class CLASS 0; Tea IgE <0.10 kU/L (<0.10); Tea IgE Class CLASS 0
== END | disposition home or self-care (01) ==
LOC: LABWHC1 09:44
PROVIDERS: ATTEND Otolaryngology
DX: J30.89 Other allergic rhinitis (principal)
CPT/HCPCS: 36415; 86003

== ENCOUNTER → 2023-04-08 | Outpatient (CLI) | payer OTHER ==
--- NOTE | 2023-04-14 10:35 | CT ---
EXAMINATION TYPE: CT sinus wo con CT DLP: 583 mGycm, Automated exposure control for dose reduction was used. DATE OF EXAM: 04/08/2023 2:33 PM COMPARISON: . CLINICAL INDICATION:Female, 63 years old with history of J32.9 Chronic Sinusitis; , Chronic sinusitis TECHNIQUE: Multiple thin axial images were obtained through the paranasal sinuses without the use of IV contrast. Additional coronal and sagittal reformatted images were submitted for evaluation. Contrast used: none Oral contrast used: none FINDINGS: Frontal sinuses: Normally developed and aerated. Frontal Recess: Clear Maxillary Sinuses: Normally developed and aerated. Maxillary Infundibula(OMC): The OMCs appear widened, right more so than left, which may reflect posto perative changes. The right OMC is widely patent, there is mild soft tissue narrowing of the left OMC , but remains patent. No Franki cells are identified. Ethmoid sinuses: There is mild mucosal thickening noted involving posterior ethmoid air cells on the right. Otherwise normally developed and aerated. Ethmoidal notch: Protected and abutting the lateral lamina. Sphenoid sinuses: Normally developed and aerated. There is incomplete sellar sphenoid sinus pneumatiz ation without evidence of dehiscence. No dehiscence of carotid canal. No evidence of optic nerve deh iscence within the sphenoid sinus. No evidence of Onodi cells. Sphenoethmoidal recesses: Clear. Nasal septum: Minimal nasal septal deviation towards the right superiorly in its midportion. Nasal Turbinates: Within normal limits. Mastoid air cells & middle ears: The air cells are clear. The middle ears are grossly unremarkable. Modified Soft tissues & Brain: Partially seen without gross abnormality. Globes are intact. Other: Cribriform plate demonstrates symmetric Keros classification type 2 cribriform plate. No evidence of bony dehiscence of skull base. Lamina papyracea is intact without evidence of remote orbital fracture or orbital prolapse into the e thmoid sinus. IMPRESSION: 1. Mild mucosal thickening involving posterior ethmoid air cells on the right. Otherwise no signific ant paranasal sinus mucosal disease. 2. The OMCs appear widened, right more so than left, which may reflect postoperative changes. The ri ght OMC is widely patent. There is mild soft tissue narrowing of the left OMC, but remains patent.
== END | disposition home or self-care (01) ==
LOC: RADCTMAIN 13:30
PROVIDERS: ATTEND Otolaryngology
DX: J32.9 Chronic sinusitis, unspecified (principal); J34.89 Other specified disorders of nose and nasal sinuses
CPT/HCPCS: 70486

== ENCOUNTER → 2023-10-13 | Outpatient (CLI) | payer OTHER ==
[2023-10-13 19:30] LABS: Clam IgE <0.10 kU/L; Codfish IgE <0.10 kU/L; Egg White IgE <0.10 kU/L; Peanut IgE <0.10 kU/L; Scallop IgE <0.10 kU/L; Shrimp IgE <0.10 kU/L; Soybean IgE <0.10 kU/L; Walnut IgE (Food) <0.10 kU/L
[2023-10-14 14:01] LABS: Apple IgE Class CLASS 0; Avocado Class CLASS 0; Banana IgE Class CLASS 0; Beef IgE <0.10 kU/L (<0.10); Beef IgE Class CLASS 0; Celery IgE <0.10 kU/L (<0.10); Celery IgE Class CLASS 0; Chicken IgE Class CLASS 0; Chocolate IgE Class CLASS 0; Coffee IgE <0.10 kU/L (<0.10); Coffee IgE Class CLASS 0; Crab IgE <0.10 kU/L (<0.10); Crab IgE Class CLASS 0; Egg Yolk IgE Class CLASS 0; Gluten IgE Class CLASS 0; Hazelnut IgE <0.10 kU/L (<0.10); Hazelnut IgE Class CLASS 0; Kiwi IgE <0.10 kU/L (<0.10); Kiwi IgE Class CLASS 0; Latex IgE Class CLASS 0; Lettuce IgE Class CLASS 0; Lobster IgE <0.10 kU/L (<0.10); Lobster IgE Class CLASS 0; Oat IgE Class CLASS 0; Onion IgE <0.10 kU/L (<0.10); Onion IgE Class CLASS 0; Pork IgE Class CLASS 0; Potato IgE <0.10 kU/L (<0.10); Potato IgE Class CLASS 0; Salmon IgE <0.10 kU/L (<0.10); Salmon IgE Class CLASS 0; Tea IgE <0.10 kU/L (<0.10); Tea IgE Class CLASS 0; Yeast Bakers/Brew IgE <0.10 kU/L (<0.10); Yeast Bakers/Brew IgE Class CLASS 0
== END | disposition home or self-care (01) ==
LOC: LABWHC1 10:06
PROVIDERS: ATTEND Otolaryngology
DX: J30.89 Other allergic rhinitis (principal)
CPT/HCPCS: 36415; 82785; 86003

== ENCOUNTER 2023-11-06 13:18 | Day surgery (SDC) | payer OTHER ==
[2023-11-05 12:07] VITALS: BMI 27.4
[2023-11-06] MEDS: IV FLUID CONTINUATION 1,000 ML IV ONE (15:30)
[2023-11-06 15:39] VITALS: TEMP 97
[2023-11-06] MEDS ORDERED: PROPOFOL 10 MG/ML 20 ML VIAL IV ONE (16:10)
--- NOTE | 2023-11-06 16:29 | P.PCN ---
Date of Procedure: 11/06/23 Implants: Brief history: Patient is a pleasant 63-year-old pleasant white female scheduled for an elective upper endoscopy as well as colonoscopy as a part of evaluation of GERD and intermittent rectal bleeding. She has been on Protonix 40 mg daily with good relief of her symptoms. Procedure performed: Esophagogastroduodenoscopy Colonoscopy with snare polypectomy. Preoperative diagnosis: GERD Intermittent rectal bleeding Anesthesia: MAC Procedure: After informed consent was obtained from the patient was brought into the endoscopy unit and IV sedation was administered by anesthesia under continuous monitoring. Initially upper endoscopy was done. The Olympus GF 160 video endoscope was inserted inserted into the mouth and esophagus intubated without any difficulty and was gradually advanced into the stomach and duodenum and carefully examined. The bulb and second part of the duodenum appeared normal. The scope was then withdrawn into the stomach adequately insufflated with air and upon careful examination the antrum and body, cardia and fundus appeared normal. The scope was then withdrawn into the esophagus. The GE junction was located at 40 cm to the incisors. It appeared regular with no erythema erosions or ulcerations. Rest of the esophagus appeared normal. Patient tolerated the procedure well. At this time the patient continued to remain sedation. Initial digital rectal examination was normal. Olympus CF 160 video colonoscope was then inserted into the rectum and gradually advanced to the cecum without any difficulty. Careful examination was performed as the scope was gradually being withdrawn. The prep was excellent. The cecum, ascending colon, transverse colon, appeared normal. The descending colon there was a 1 cm flat polyp removed by snare polypectomy. Rest of the descending colon, sigmoid colon and rectum appeared normal. 5 mm rectal polyp noted which was removed by snare polypectomy retroflexion was performed in the rectum and small internal were noted. Patient tolerated the procedure well. Impression: 1. Upper endoscopy revealed normal-appearing esophagus and stomach with no evidence of esophagitis or Maravilla's esophagus 2. Colonoscopy revealed 1 cm flat desscending colon polyp status post snare polypectomy and a 5 mm rectal polyp status post snare polypectomy Recommendations: Findings of this examination were discussed with the patient as well as her family. She was advised to continue with Protonix 40 mg daily and follow antireflux measures. Follow-up with the biopsy results. If the biopsy reveals adenoma she can have repeat colonoscopy in 5 years. s.
[2023-11-06 16:56] VITALS: PULSE 89; RESP 14
[2023-11-06 17:00] VITALS: BP 134/77
== END 2023-11-06 17:14 | disposition home or self-care (01) ==
LOC: ORWHC2ENDO 13:18
PROVIDERS: ATTEND Internal Medicine Gastroenterology
DX: K63.5 Polyp of colon (principal); K62.1 Rectal polyp; K21.9 Gastro-esophageal reflux disease without esophagitis; E78.5 Hyperlipidemia, unspecified; J45.909 Unspecified asthma, uncomplicated; Z87.891 Personal history of nicotine dependence; Z88.0 Allergy status to penicillin; Z88.1 Allergy status to other antibiotic agents; Z88.3 Allergy status to other anti-infective agents; Z88.6 Allergy status to analgesic agent; Z88.8 Allergy status to other drugs, medicaments and biological substances; Z91.041 Radiographic dye allergy status; Z91.018 Allergy to other foods; Z88.2 Allergy status to sulfonamides; Z79.899 Other long term (current) drug therapy; Z79.82 Long term (current) use of aspirin
CPT/HCPCS: 88305; 45385; 43235; J2704

== ENCOUNTER → 2023-11-26 | Outpatient (CLI) | payer OTHER ==
--- NOTE | 2023-12-16 08:07 | MM ---
Reason for Exam: Screening (asymptomatic). Last mammogram was performed 1 year(s) and 8 month(s) ago. Patient History: Menarche at age 14. First Full-Term at age 19. Hysterectomy at age 26. Postmenopausal. Currently using Estrogen, beginning at age 51 for 10 years. Risk Values: Roxanne 5 year model risk: 1.1%. NCI Lifetime model risk: 5.2%. Prior Study Comparison: 01/18/2015 Bilateral Screening Mammogram, [facility]. 01/01/2017 Bilateral Screening Mammogram, [facility]. 03/23/2018 Bilateral Screening Mammogram, [facility]. 02/17/2020 Bilateral Screening Mammogram, [facility]. 03/11/2021 Bilateral Screening Mammogram, [facility]. 03/27/2022 Bilateral MG screening mammo w CAD, [facility]. Tissue Density: The breasts are heterogeneously dense, which may obscure small masses. Findings: Analyzed By CAD. Asymmetric density in the central inner margin right breast and upper central margin left breast. Findings most likely related to superimposed structures. However, spot compression view is recommended for confirmation. Overall Assessment: Incomplete: need additional imaging evaluation, BI-RAD 0 Management: Diagnostic Mammogram of both breasts. . Patient should continue monthly self-breast exams. A clinical breast exam by your physician is recommended on an annual basis. This exam should not preclude additional follow-up of suspicious palpable abnormalities. Note on Roxanne scores and lifetime risk: 1. A Roxanne score greater than 3% is considered moderate risk. If this is the case, consider specialist referral to assess eligibility for a risk reducing agent. 2. If overall lifetime risk for the development of breast cancer is 20% or higher, the patient may qualify for future screening with alternating mammogram and breast MRI. Electronically signed and approved by: Marcus Mendez M.D. Radiologis
== END | disposition home or self-care (01) ==
LOC: RADMAMWWP 12:00
PROVIDERS: ATTEND Obstetrics & Gynecology
DX: Z12.31 Encounter for screening mammogram for malignant neoplasm of breast
CPT/HCPCS: 77063; 77067

== ENCOUNTER → 2023-12-11 | Outpatient (CLI) | payer OTHER | END | disposition home or self-care (01) | LOC: LABWHC1 12:27 | PROVIDERS: ATTEND Nurse Practitioner Family | DX: J30.89 Other allergic rhinitis (principal) | CPT/HCPCS: 36415 ==

== ENCOUNTER → 2023-12-23 | Outpatient (CLI) | payer OTHER ==
--- NOTE | 2023-12-23 13:28 | MM ---
Reason for Exam: Additional evaluation requested from abnormal screening. Last screening mammogram was performed less than 1 month ago. Patient History: Menarche at age 14. First Full-Term at age 19. Hysterectomy at age 26. Postmenopausal. Currently using Estrogen, beginning at age 51 for 10 years. Risk Values: Roxanne 5 year model risk: 1.1%. NCI Lifetime model risk: 5.2%. Prior Study Comparison: 01/01/2017 Bilateral Screening Mammogram, [facility]. 03/23/2018 Bilateral Screening Mammogram, [facility]. 02/17/2020 Bilateral Screening Mammogram, [facility]. 03/11/2021 Bilateral Screening Mammogram, [facility]. 03/27/2022 Bilateral MG screening mammo w CAD, [facility]. 11/26/2023 Bilateral MG 3D screening mammo w/cad, [facility]. Tissue Density: There are scattered areas of fibroglandular density. Findings: Analyzed By CAD. Persistent nodules not seen on spot compression imaging. No evidence for distortion or persistent asymmetry. Overall Assessment: Negative, BI-RAD 1 Management: Screening Mammogram of both breasts in 1 year. . Results were given to the patient verbally at the time of exam. Patient should continue monthly self-breast exams. A clinical breast exam by your physician is recommended on an annual basis. This exam should not preclude additional follow-up of suspicious palpable abnormalities. Note on Roxanne scores and lifetime risk: 1. A Roxanne score greater than 3% is considered moderate risk. If this is the case, consider specialist referral to assess eligibility for a risk reducing agent. 2. If overall lifetime risk for the development of breast cancer is 20% or higher, the patient may qualify for future screening with alternating mammogram and breast MRI. Electronically signed and approved by: Cuong Aguilera M.D. Radiologis
== END | disposition home or self-care (01) ==
LOC: RADMAMWWP 12:48
PROVIDERS: ATTEND Obstetrics & Gynecology
DX: R92.8 Other abnormal and inconclusive findings on diagnostic imaging of breast
CPT/HCPCS: 77062; 77066

== ENCOUNTER 2024-01-01 23:51 | Emergency (ER) | payer OTHER ==
[2024-01-01 23:57] VITALS: RESP 17; TEMP 97.3
--- NOTE | 2024-01-02 01:38 | ED ---
Allergic Reaction HPI - General Chief complaint: Allergic Reaction Stated complaint: Rash,Acid Reflux Time Seen by Provider: 01/02/24 01:00 Source: patient, RN notes reviewed Mode of arrival: ambulatory Limitations: no limitations - History of Present Illness Initial Comments: 63-year-old female presenting to the ER with chief complaint of rash x 1 day. States she was seen at urgent care earlier today and was given amoxicillin for sinus infection. States a couple hours after she took amoxicillin, she noticed she had a red rash on trunk and legs. States rash has mostly resolved, but is looking to have antibiotic switched. Denies shortness of breath, chest pain, lip or tongue swelling. - Related Data Home Medications Medication Instructions Recorded Confirmed EPINEPHrine (Auto Inject) [Epipen] 0.3 mg IM ONCE PRN 03/01/18 11/06/23 Pantoprazole Sodium [Protonix] 20 mg PO QAM 01/05/19 11/06/23 Acetaminophen Tab [Tylenol Tab] 1,000 mg PO Q6H PRN 03/19/20 11/06/23 Albuterol Inhaler [Ventolin Hfa 2 puff INHALATION RT-Q4H PRN 03/19/20 11/06/23 Inhaler] Aspirin EC [Ecotrin Low Dose] 81 mg PO HS 03/19/20 11/06/23 Ibuprofen [Motrin Ib] 400 mg PO Q4-6H PRN 03/19/20 11/06/23 Famotidine [Pepcid] 20 mg PO AC-SUPPER 09/24/23 11/06/23 Pseudoephedrine [Sudafed] 30 mg PO DIRECTED PRN 09/24/23 11/06/23 Cetirizine HCl [Children's Zyrtec 5 - 10 mg PO HS 11/05/23 11/06/23 Allergy] Cholecalciferol (Vitamin D3) 125 mcg PO DAILY 11/05/23 11/06/23 [Vitamin D3 (125 MCG = 5,000 IU)] Estradiol Cream [Estrace Cream 1 gm VAGINAL TU 11/05/23 11/06/23 0.01%] Olopatadine HCl [Pataday Once 1 drop BOTH EYES DAILY 11/05/23 11/06/23 Daily Relief] Oxymetazoline HCl [Rhofade] 1 applic TOPICAL DAILY PRN 11/05/23 11/06/23 Saline Nasal Gel [[place] Nasal Gel] 1 applic NASAL DIRECTED 11/05/23 11/06/23 Previous Rx's Medication Instructions Recorded Azithromycin [Zithromax Z Pack] 0 tab PO DIRECTED #6 tab 01/02/24 Allergies Allergy/AdvReac Type Severity Reaction Status Date / Time amoxicillin trihydrate Allergy skin Verified 01/01/24 23:57 [From Augmentin] redness bacitracin Allergy Unknown Verified 01/01/24 23:57 [From Neosporin ([id number])] bacitracin zinc Allergy Unknown Verified 01/01/24 23:57 [From Neosporin ([id number])] cephalexin monohydrate Allergy Swelling Verified 01/01/24 23:57 [From Keflex] cortisone Allergy Rash/Hives Verified 01/01/24 23:57 doxycycline Allergy Rash/Hives Verified 01/01/24 23:57 doxylamine Allergy Rash/Hives Verified 01/01/24 23:57 levofloxacin [From Levaquin] Allergy Swelling Verified 01/01/24 23:57 mometasone furoate Allergy lewis Verified 01/01/24 23:57 [From Nasonex] neomycin sulfate Allergy Unknown Verified 01/01/24 23:57 [From Neosporin ([id number])] omalizumab [From Xolair] Allergy Swelling Verified 01/01/24 23:57 polymyxin B Allergy Unknown Verified 01/01/24 23:57 [From Neosporin ([id number])] potassium clavulanate Allergy skin Verified 01/01/24 23:57 [From Augmentin] redness sulfamethoxazole Allergy Swelling Verified 01/01/24 23:57 [From Bactrim] tobramycin Allergy Swelling Verified 01/01/24 23:57 trimethoprim [From Bactrim] Allergy Swelling Verified 01/01/24 23:57 banana AdvReac food Verified 01/01/24 23:57 sensitivity ciprofloxacin AdvReac Dizziness/n Verified 01/01/24 23:57 ausea Iodinated Contrast Media AdvReac Nausea & Verified 01/01/24 23:57 [Iodinated Contrast Media - Vomiting IV Dye] ketorolac [From Acular] AdvReac Unknown Verified 01/01/24 23:57 ketorolac tromethamine AdvReac Nausea & Verified 01/01/24 23:57 [From Toradol] Vomiting nabumetone [From Relafen] AdvReac Swelling Verified 01/01/24 23:57 omeprazole [From Prilosec] AdvReac Nausea Verified 01/01/24 23:57 pineapple AdvReac food Verified 01/01/24 23:57 sensitivity yeast, dried AdvReac food Verified 01/01/24 23:57 sensitivity teva Allergy Unknown Uncoded 01/01/24 23:57 Review of Systems ROS Statement: Those systems with pertinent positive or pertinent negative responses have been documented in the HPI. ROS Other: All systems not noted in ROS Statement are negative. Past Medical History Past Medical History: Asthma, GERD/Reflux, Hyperlipidemia, Osteoarthritis (OA), Renal Disease, Skin Disorder Additional Past Medical History / Comment(s): "Acid Reflux Induced Asthma, no problems in a long time". Hx precancer of cervix, had partial hysterectomy. Bulging discs in back. Hx migraines, none in a long time. Rosacea. Small hiatal hernia. 3 leaky heart valves, being monitored. Some decreased kidney function, states was instructed to drink more water. History of Any Multi-Drug Resistant Organisms: None Reported Past Surgical History: Section, Hysterectomy Additional Past Surgical History / Comment(s): Section X3, partial hysterectomy, sinus surgery, colonoscopies, EGD's. Past Anesthesia/Blood Transfusion Reactions: No Reported Reaction Past Psychological History: No Psychological Hx Reported Smoking Status: Former smoker Past Alcohol Use History: None Reported Past Drug Use History: None Reported - Past Family History Mother Family Medical History: No Reported History General Exam Limitations: no limitations General appearance: alert, in no apparent distress Head exam: Present: atraumatic, normocephalic, normal inspection Eye exam: Present: normal appearance, PERRL, EOMI. Absent: scleral icterus, conjunctival injection, periorbital swelling ENT exam: Present: normal exam, normal oropharynx, mucous membranes moist, other (No lip or tongue swelling) Neck exam: Present: normal inspection. Absent: tenderness, meningismus, lymphadenopathy Respiratory exam: Present: normal lung sounds bilaterally. Absent: respiratory distress, wheezes, rales, rhonchi, stridor Cardiovascular Exam: Present: regular rate, normal rhythm, normal heart sounds. Absent: systolic murmur, diastolic murmur, rubs, gallop, clicks Neurological exam: Present: alert, oriented X3 Psychiatric exam: Present: normal affect, normal mood Skin exam: Present: warm, dry, intact, normal color, rash (Very mild erythema present on proximal thighs and abdomen, consistent with urticaria) Course Vital Signs 01/01/24 01/02/24 23:54 02:36 Temperature 97.3 F L 97.3 F L Pulse Rate 76 79 Respiratory 17 17 Rate Blood Pressure 158/95 140/76 O2 Sat by Pulse 100 99 Oximetry Medical Decision Making - Medical Decision Making Was pt. sent in by a medical professional or institution (, [facility]I, BACK SEWER, urgent care, hospital, or fdc...) When possible be specific @ -No Did you speak to anyone other than the patient for history (EMS, parent, family, police, friend...)? What history was obtained from this source @ -No Did you review nursing and triage notes (agree or disagree)? Why? @ -I reviewed and agree with nursing and triage notes Were old charts reviewed (outside hosp., previous admission, EMS record, old EKG, old radiological studies, urgent care reports/EKG's, fdc records)? Report findings @ -No old charts were reviewed Differential Diagnosis (chest pain, altered mental status, abdominal pain women, abdominal pain men, vaginal bleeding, weakness, fever, dyspnea, syncope, headache, dizziness, GI bleed, back pain, seizure, CVA, palpatations, mental health, musculoskeletal)? @ -Allergic reaction, anaphylaxis, sinus infection, viral URI, contact dermatitis, cellulitis EKG interpreted by me (3pts min.). @ -None X-rays interpreted by me (1pt min.). @ -None done CT interpreted by me (1pt min.). @ -None done U/S interpreted by me (1pt. min.). @ -None done What testing was considered but not performed or refused? (CT, X-rays, U/S, labs)? Why? @ -None What meds were considered but not given or refused? Why? @ -Offered steroids and Benadryl, however reports she is allergic to some steroids Did you discuss the management of the patient with other professionals (professionals i.e. , [facility], BACK SEWER, lab, RT, psych nurse, social service agency director, marine gear keeper, teacher, vice squad police officer, immigration case manager)? Give summary @ -No Was smoking cessation discussed for >3mins.? @ -No Was critical care preformed (if so, how long)? @ -No Were there social determinants of health that impacted care today? How? (Homelessness, low income, unemployed, alcoholism, drug addiction, transportation, low edu. Level, literacy, decrease access to med. care, group home, rehab)? @ -No Was there de-escalation of care discussed even if they declined (Discuss DNR or withdrawal of care, Hospice)? DNR status @ -No What co-morbidities impacted this encounter? (DM, HTN, Smoking, COPD, CAD, Cancer, CVA, ARF, Chemo, Hep., AIDS, mental health diagnosis, sleep apnea, morbid obesity)? @ -None Was patient admitted / discharged? Hospital course, mention meds given and route, prescriptions, significant lab abnormalities, going to OR and other pertinent info. @ -Patient was discharged. This is a 63-year-old female presenting with rash x 1 day after starting amoxicillin for sinus infection. No red flag symptoms. Vital signs within normal limits. No acute distress or signs of labored breathing. Mild urticaria present on trunk and proximal thighs. Patient is requesting COVID testing today as well which returned negative. Supportive care discussed. Instructed to discontinue amoxicillin as this is likely what is causing symptoms. Supportive care discussed including Benadryl and Pepcid. Prescribed azithromycin to take instead of the amoxicillin. Return precautions discussed and patient is agreeable to plan. Patient discharged stable condition. Case was discussed with my ED attending Dr. Blanco. Undiagnosed new problem with uncertain prognosis? @ -No Drug Therapy requiring intensive monitoring for toxicity (Heparin, Nitro, Insulin, Cardizem)? @ -No Were any procedures done? @ -No Diagnosis/symptom? @ -Allergic reaction Acute, or Chronic, or Acute on Chronic? @ -Acute Uncomplicated (without systemic symptoms) or Complicated (systemic symptoms)? @ -Uncomplicated Side effects of treatment? @ -No Exacerbation, Progression, or Severe Exacerbation? @ -No Poses a threat to life or bodily function? How? (Chest pain, [place], [place], pneumonia, PE, COPD, DKA, ARF, appy, cholecystitis, CVA, Diverticulitis, Homicidal, Suicidal, threat to staff... and all critical care pts) @ -No - Lab Data Lab Results 01/02/24 Range/Units 01:26 Influenza Type A (PCR) Not Detected (Not Detectd) Influenza Type B (PCR) Not Detected (Not Detectd) RSV (PCR) Not Detected (Not Detectd) SARS-CoV-2 (PCR) Not Detected (Not Detectd) Disposition Clinical Impression: Allergic reaction, Acute bacterial sinusitis Disposition: HOME SELF-CARE Condition: Stable Instructions (If sedation given, give patient instructions): Urticaria (ED) Additional Instructions: Discontinue amoxicillin. Take full course of azithromycin and steroids as prescribed. Follow-up with senior analyst market intelligence as discussed. Please return to the Emergency Department if symptoms worsen or any other concerns. Prescriptions: Azithromycin [Zithromax Z Pack] 0 tab PO DIRECTED #6 tab Is patient prescribed a controlled substance at d/c from ED?: No Referrals: Domenica Kemp MD [Primary Care Provider] - 1-2 days Time of Disposition: 02:27
[2024-01-02 02:42] VITALS: BP 140/76; PULSE 79
== END 2024-01-02 02:42 | disposition home or self-care (01) ==
LOC: EC 23:51
CPT/HCPCS: 87636; 99284

== ENCOUNTER → 2024-07-06 | Outpatient (CLI) | payer OTHER ==
[2024-07-06 19:20] LABS: ALT 36 U/L (8-44); AST 36 U/L (13-35); Albumin 4.3 g/dL (3.8-4.9); Albumin/Globulin Ratio 1.54 Ratio (1.60-3.17); Alkaline Phosphatase 104 U/L (41-126); Blood Urea Nitrogen 15.3 mg/dL (9.0-27.0); Calcium 9.4 mg/dL (8.7-10.3); Carbon Dioxide 27.7 mmol/L (21.6-31.8); Chloride 102 mmol/L (96-109); Globulin 2.8 g/dL (1.6-3.3); Glucose 95 mg/dL (70-110); Potassium 3.9 mmol/L (3.5-5.5); Sodium 139 mmol/L (135-145); Total Bilirubin 0.5 mg/dL (0.3-1.2); Total Protein 7.1 g/dL (6.2-8.2)
== END | disposition home or self-care (01) ==
LOC: LABWHC1 14:34
PROVIDERS: ATTEND Internal Medicine Infectious Disease
DX: J32.0 Chronic maxillary sinusitis (principal)
CPT/HCPCS: 36415; 80053; 83036; 85027; 86140; 86160; 86162

== ENCOUNTER → 2024-07-16 | Outpatient (CLI) | payer OTHER ==
[2024-07-17 06:25] LABS: HCT 39.1 % (37.2-46.3); HGB 12.8 g/dL (12.0-15.0); MCHC 32.7 g/dL (32.0-37.0); MCV 91.8 FL (80.0-97.0); Mean Platelet Volume 10.4 FL (9.5-12.2); NRBC Per 100 WBC 0 X 10*3/uL (0.00-0.01); Platelet Count 311 X 10*3/uL (140-440); RBC 4.26 X 10*6/uL (4.10-5.20); RDW 11.9 % (11.5-14.5); WBC 5.92 X 10*3/uL (4.50-10.00)
[2024-07-17 06:26] LABS: Basophils # (A) 0.08 X 10*3/uL (0.00-0.10); Basophils % (A) 1.4 %; Eosinophils # (A) 0.22 X 10*3/uL (0.04-0.35); Eosinophils % (A) 3.7 %; Lymphocytes # (A) 2.23 X 10*3/uL (0.90-5.00); Lymphocytes % (A) 37.7 %; Monocytes # (A) 0.61 X 10*3/uL (0.20-1.00); Monocytes % (A) 10.3 %; Neutrophils # (A) 2.77 X 10*3/uL (1.80-7.70); Neutrophils % (A) 46.7 %
[2024-07-18 10:18] LABS: IgG Subclass 1 597.7 mg/dL (382.40-928.60); IgG Subclass 2 423.6 mg/dL (241.80-700.30); IgG Subclass 3 124.9 mg/dL (21.82-176.00); IgG Subclass 4 56.8 mg/dL (3.92-86.40)
== END | disposition home or self-care (01) ==
LOC: LABWHC1 11:45
PROVIDERS: ATTEND Internal Medicine Infectious Disease
DX: J32.0 Chronic maxillary sinusitis (principal)
CPT/HCPCS: 36415; 82787; 85025

== ENCOUNTER 2024-08-18 12:03 | Emergency (ER) | payer OTHER ==
[2024-08-18 12:12] VITALS: TEMP 97.3
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
[2024-08-18] MEDS: ACETAMINOPHEN TAB 325 MG TAB PO STA (13:02)
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
[2024-08-18 14:38] VITALS: BP 154/101; PULSE 81; RESP 16
== END 2024-08-18 15:06 | disposition home or self-care (01) ==
LOC: EC 12:03
DX: S39.012A Strain of muscle, fascia and tendon of lower back, initial encounter (principal); Z87.891 Personal history of nicotine dependence; Z88.2 Allergy status to sulfonamides; Z88.1 Allergy status to other antibiotic agents; Z91.018 Allergy to other foods; Z88.6 Allergy status to analgesic agent; Z88.8 Allergy status to other drugs, medicaments and biological substances; Z91.041 Radiographic dye allergy status; Z88.0 Allergy status to penicillin; V43.52XA Car driver injured in collision with other type car in traffic accident, initial encounter; Y92.410 Unspecified street and highway as the place of occurrence of the external cause
CPT/HCPCS: 72128; 72125; 72131; 70450; 99284; L0120